=== PATIENT | female | born 1970 | race Caucasian/White ===

== ENCOUNTER 2017-08-26 08:25 | Day surgery (SDC) | payer MEDICAID, SELFPAY ==
--- NOTE | 2017-08-21 14:45 | EKG12_ITS ---
Test Reason : PREOP Blood Pressure : / mmHG Vent. Rate : 077 BPM Atrial Rate : 077 BPM P-R Int : 182 ms QRS Dur : 082 ms QT Int : 390 ms P-R-T Axes : 046 043 045 degrees QTc Int : 441 ms Normal sinus rhythm Normal ECG Confirmed by ASHLEE CHENG, RAY ([id number]), book editor MICHI URIOSTEGUI ([id number] on 08/25/2017 2:55:22 PM Referred By: Abad Loaiza Confirmed By:RAY ROSADO MD
[2017-08-21 15:17] LABS: Anion Gap 8 (5-15); BUN 22 mg/dL (7-18); BUN/Creat Ratio 27.3 RATIO (10-20); Calcium,Total 9.6 mg/dL (8.5-10.1); Chloride 103 mmol/L (98-107); Creatinine, Serum 0.81 mg/dL (0.55-1.02); EST Glomerular Filtration Rate 81 mL/min (>60); Est Glom Filt Rate - Afr Amer 98 mL/min (>60); Glucose 96 mg/dL (70-110); Sodium Level 137 mmol/L (136-145)
[2017-08-26 08:46] VITALS: BP 125/82; PULSE 74; RESP 16; TEMP 36.7; O2SAT 100; BMI 30.4
[2017-08-26] MEDS: Clindamycin 900 MG/50 ML BAG 75 MG IV (10:19)
[2017-08-26] MEDS: Mupirocin Ointment 22gm Tube 1 APPLIC (10:47)
[2017-08-26 12:55] VITALS: BP 125/82; BP 129/80; PULSE 81; RESP 18; TEMP 36.8; O2SAT 93
[2017-08-26 13:00] VITALS: BP 125/82; BP 130/81; PULSE 79; RESP 18; O2SAT 93
[2017-08-26 13:16] VITALS: BP 125/82; BP 126/78; PULSE 77; RESP 18; TEMP 37.1; O2SAT 94
--- NOTE | 2017-08-26 13:36 | PCM.DC ---
You will use the following diet at home:: No restrictions Discharge Activity: May not drive while taking narcotic pain medications. Additional Activity Instructions:: may bathe but needs to keep bridge of nose dry. however, the morning of the follow up appointment, get your nose very wet. muprocin to nasal incisions twice daily. nasal saline 3-4 times/day. Allergies/Adverse Reactions: Allergies oxycodone [From Percocet] Adverse Reaction (Verified 08/18/17 14:21) Vomiting Medications to take at Discharge Lisinopril [Zestril] 10 mg PO QHS 03/22/16 Ibuprofen 200 mg PO PRN PRN 08/18/17 Hydrocodone/Acetaminophen [[place] 5-325 Tablet] 1 ea PO Q6H #20 tab 08/26/17 Sulfamethoxazole/Trimethoprim [Bactrim 400-80 mg Tablet] 1 ea PO BID #14 tab 08/26/17 The following prescriptions were given: Sulfamethoxazole/Trimethoprim [Bactrim 400-80 mg Tablet] 1 ea PO BID #14 tab Hydrocodone/Acetaminophen [[place] 5-325 Tablet] 1 ea PO Q6H #20 tab Primary Care Physician: Cirilo Dillon [Primary Care Provider] - Please Follow Up With: Abad Loaiza MD When: 1 week
[2017-08-26] MEDS: HYDROcodone Bitartrate/Apap 5/325 Tablet PO (14:37)
[2017-08-26 15:26] VITALS: BP 125/82
--- NOTE | 2017-08-26 16:47 | PCM.OPRPT ---
Problem List (1) Nasal congestion Status: Chronic Report of Operation Date of Procedure: 08/26/17 Pre-Operative Diagnosis: 1. nasal congestion. 2. nasal septal deviation. 3. inferior turbinate hypertrophy, right and left. 4. internal nasal valve collapse, right and left Post-Operative Diagnosis: 1. nasal congestion. 2. nasal septal deviation. 3. inferior turbinate hypertrophy, right and left. 4. internal nasal valve collapse, right and left Surgery/Procedure Performed:: 1. open septorhinoplasty. 2. submucous resection inferior turbinates. 3. correction internal nasal valve stenosis, right and left Type of Anesthesia:: General Description of Procedure: on the day of the procedure, after appropriate informed consent was obtained, the patient was brought to the operating room and placed in supine position on the operating room table. he was placed under general endotracheal anesthesia by the anesthesiologist. tegaderm was placed over the eyes. the bilateral nasal cavities were decongested with oxymetazoline soaked pledgets. an inverted v columellar incision was made with a asa'carsarmiut blade. this traversed into marginal incisions on the right and left with three point retraction and iris scizzors. the lower lateral cartilages were skeletonized. the scroll region was found and the left and right upper lateral cartilages were skeletonized with iris scizzors. a large amount of scar tissue was encountered as this was a revision rhinoplasty. the medial crura were lateralized with zohra brown forceps and the anterior septal angle was found. sub mucoperichondrial planes were developed on the right then left using a tracy elevator. the previous L-strut created was weak, bowed and deviated to the left. this was incised in order to complete an anterior septal reconstruction. however, after incision, the overlying pieces of cartilage came together quite nicely. a PDS plate was fashioned to bridge the gap and a 1 x 2 cm portion was sutured including the overlying cartilage. the submucoperichondrial plane was then closed with numerous quilting sutures, some incorporating the reconstruction and PDS plate. the head of the right and left inferior turbinates were injected with lidocaine/epinephrine. an incision was made in the head of the right inferior turbinate. this was dissected submucosally with a tracy elevator, reduced using suction electrocautery, and outfractured using a boies elevator. an incision was made in the head of the left inferior turbinate. this was dissected submucosally with a tracy elevator, reduced using suction electrocautery, and outfractured using a boies elevator. the lateral nasal sidewalls on the right and left were injected with lidocaine/epinephrine. the spirox, lateral trocar was inserted into the right vestibular skin and was advanced over the lower lateral cartilage and upper lateral cartilage to a predetermined point over the right nasal bone. using the device in usual fashion, the implant was advanced and the trocar was retracted. the spirox, lateral trocar was inserted into the left vestibular skin and was advanced over the lower lateral cartilage and upper lateral cartilage to a predetermined point over the left nasal bone. using the device in usual fashion, the implant was advanced and the trocar was retracted. taveras splints were sutured into place and a dorsal nasal splint was placed. the patient was awoken from anesthesia by the anesthesiologist and transferred to the PACU in stable condition. Grafts/Implants Used: latera - Admit VTE Documentation VTE Present on Admission: No VTE Mechan Device Prophylaxis: SCD's Reason prophylaxis not ordered:: Treatment Not Indicated
--- NOTE | 2017-08-26 17:03 | OP.PCM_ITS ---
Problem List (1) Nasal congestion Status: Chronic Report of Operation Date of Procedure: 08/26/17 Pre-Operative Diagnosis: 1. nasal congestion. 2. nasal septal deviation. 3. inferior turbinate hypertrophy, right and left. 4. internal nasal valve collapse, right and left Post-Operative Diagnosis: 1. nasal congestion. 2. nasal septal deviation. 3. inferior turbinate hypertrophy, right and left. 4. internal nasal valve collapse, right and left Surgery/Procedure Performed:: 1. open septorhinoplasty. 2. submucous resection inferior turbinates. 3. correction internal nasal valve stenosis, right and left Type of Anesthesia:: General Description of Procedure: on the day of the procedure, after appropriate informed consent was obtained, the patient was brought to the operating room and placed in supine position on the operating room table. he was placed under general endotracheal anesthesia by the anesthesiologist. tegaderm was placed over the eyes. the bilateral nasal cavities were decongested with oxymetazoline soaked pledgets. an inverted v columellar incision was made with a [facility] ira blade. this traversed into marginal incisions on the right and left with three point retraction and iris scizzors. the lower lateral cartilages were skeletonized. the scroll region was found and the left and right upper lateral cartilages were skeletonized with iris scizzors. a large amount of scar tissue was encountered as this was a revision rhinoplasty. the medial crura were lateralized with zohra brown forceps and the anterior septal angle was found. sub mucoperichondrial planes were developed on the right then left using a tracy elevator. the previous L-strut created was weak, bowed and deviated to the left. this was incised in order to complete an anterior septal reconstruction. however, after incision, the overlying pieces of cartilage came together quite nicely. a PDS plate was fashioned to bridge the gap and a 1 x 2 cm portion was sutured including the overlying cartilage. the submucoperichondrial plane was then closed with numerous quilting sutures, some incorporating the reconstruction and PDS plate. the head of the right and left inferior turbinates were injected with lidocaine/ epinephrine. an incision was made in the head of the right inferior turbinate. this was dissected submucosally with a tracy elevator, reduced using suction electrocautery, and outfractured using a boies elevator. an incision was made in the head of the left inferior turbinate. this was dissected submucosally with a tracy elevator, reduced using suction electrocautery, and outfractured using a boies elevator. the lateral nasal sidewalls on the right and left were injected with lidocaine/ epinephrine. the spirox, lateral trocar was inserted into the right vestibular skin and was advanced over the lower lateral cartilage and upper lateral cartilage to a predetermined point over the right nasal bone. using the device in usual fashion, the implant was advanced and the trocar was retracted. the spirox, lateral trocar was inserted into the left vestibular skin and was advanced over the lower lateral cartilage and upper lateral cartilage to a predetermined point over the left nasal bone. using the device in usual fashion , the implant was advanced and the trocar was retracted. taveras splints were sutured into place and a dorsal nasal splint was placed. the patient was awoken from anesthesia by the anesthesiologist and transferred to the PACU in stable condition. Grafts/Implants Used: latera - Admit VTE Documentation VTE Present on Admission: No VTE Mechan Device Prophylaxis: SCD's Reason prophylaxis not ordered:: Treatment Not Indicated
== END 2017-08-26 15:15 | disposition home or self-care (01) ==
LOC: SDC 08:25 → AC 08:26
PROVIDERS: Family Provider Family Medicine; PCP Family Medicine; Visit Provider Otolaryngology
PROC: (CPT 30140; principal; 2017-08-26 10:00)
DX: J34.2 Deviated nasal septum (principal); R09.81 Nasal congestion; J34.3 Hypertrophy of nasal turbinates; M95.0 Acquired deformity of nose; I10 Essential (primary) hypertension
CPT/HCPCS: 00160; 30140; 30420; 36415; 80048; 93005; J7120; J2405

== ENCOUNTER 2021-01-10 06:54 | Emergency (ER) | payer MEDICAID, SELFPAY ==
[2020-12-06 08:06] VITALS: BMI 30.4
[2021-01-10 06:54] VITALS: BP 150/135; PULSE 68; RESP 18; TEMP 36.5; O2SAT 97; BMI 33.0
--- NOTE | 2021-01-10 07:01 | CT_ITS ---
STUDY: CT ABDOMEN AND PELVIS WITHOUT CONTRAST REASON FOR EXAM: Female, 50 years old. Pain RADIATION DOSAGE (If Supplied By Facility): CTDIvol = ( 14.76 ) mGy, DLP = ( 814.80 ) mGycm TECHNIQUE: Transaxial images were obtained from the dome of the diaphragm to the symphysis pubis without oral contrast, and without intravenous contrast. Sagittal and coronal images were reconstructed. Individualized dose optimization techniques were used for this CT. COMPARISON: None. FINDINGS: The visualized lung bases are unremarkable. The visualized portions of the heart are within normal limits. There is hepatomegaly with diffuse hepatic enlargement. Normal gallbladder and extrahepatic biliary system. Normal spleen. Normal pancreas. Normal bilateral adrenal glands. Normal right kidney. Mild left hydronephrosis. There is mild distention of the left ureter. There is a suggestion of a punctate stone in the proximal left ureter image #86. There is a stone just inside the bladder at the level of ureterovesicular junction measuring approximately 2 -3 mm. Normal visualized stomach. Normal small intestine. There is moderate stool in the colon. The appendix is visualized and appears normal. Normal abdominal aorta. Normal inferior vena cava. Normal retroperitoneum. There is a 2 to 3 mm stone in the left side of the bladder. Normal visualized uterus. Normal abdominal wall. There are diffuse degenerative changes of the visualized lumbar spine. There is a visualized limbus vertebra at L5. There is a broad disc protrusion L5-S1 with moderate neural foramina narrowing minimal central stenosis. There is a broad disc CT/Abdomen/Pelvis without Cont IMPRESSION: Mild hydronephrosis. 2 to 3 mm stone Just inside the bladder at the ureterovesicular junction, and punctate stone proximal left ureter. Constipation. Mild hepatic steatosis. Degenerative changes of thoracolumbar spine. Electronically Signed: Rima Espinal MD at 8:07 EDT Tel , Service support ,
--- NOTE | 2021-01-10 07:02 | ED.VIS.GI ---
HPI HPI - GI History of Present Illness Chief Complaint: Flank Pain Detail of Chief Complaint: Sided flank pain that started 1 hour ago Informant: patient Abdominal Pain/Flank Pain Current Severity: 10/10 Worsened by: Nothing Nausea/Vomiting/Emesis GI Symptom: Positive for Nausea and Vomiting Narrative Narrative: Patient presents with sudden onset of left-sided lower abdomen pain that started an hour ago. She had one episode of nausea and vomiting. Patient is never had discomfort like this before. She rates the pain a 10 out of 10. She denies fever or recent illness. She denies diarrhea. She denies blood in her stool or black tarry stool. No history of kidney stones. She denies dysuria, urgency, or frequency. Prior similar symptoms: No PFSH [facility] Medical History (Updated 01/10/21 @ 08:[address] Rasta Gallardo, ) Hypertension Home Medications hydrochlorothiazide 12.5 mg PO DAILY 01/10/21 [History Last Taken Unknown] hydrocodone-acetaminophen 1 tab PO Q4H PRN PRN 2 Days #10 tablet 01/10/21 [Rx Last Taken Unknown] losartan 50 mg PO DAILY 01/10/21 [History Last Taken Unknown] naproxen 500 mg PO BID #14 tab 01/10/21 [Rx Last Taken Unknown] ondansetron 4 mg PO Q8H PRN PRN #10 tab 01/10/21 [Rx Last Taken Unknown] Allergy/AdvReac Type Severity Reaction Status Date / Time oxycodone [From Percocet] AdvReac Vomiting Verified 01/10/21 07:00 Social History Smoking Status: Never smoker ROS ROS ED Constitutional Constitutional ED: Reports systems reviewed and no addt'l complaints, except as documented; Denies body ache(s), change in weight or chills Eyes Eyes: Denies acute decrease in peripheral vision, change in vision, double vision or loss of vision ENT ENT ED: Reports none; Denies ear pain, lip swelling, loss taste/smell, neck pain, otalgia or sore throat Cardiovascular Cardiovascular: Reports none; Denies abdominal pain, chest pain with activity, leg edema, lightheadedness, palpitations, rapid heart rate or syncope Respiratory/Chest Respiratory/Chest: Reports none; Denies change in mental status, dry cough, dyspnea, hemoptysis, shortness of breath at rest or shortness of breath with exertion Gastrointestinal Gastrointestinal: Reports none, abdominal pain, nausea and vomiting; Denies change in stool character, diarrhea, hematemesis, hematochezia, melena or rectal bleeding Genitourinary Genitourinary ED: Reports none; Denies abdominal discomfort, anuria, dysuria, genital pain or polyuria Musculoskeletal Musculoskeletal: Reports none; Denies arthralgias, back pain, difficulty walking, extremity pain, muscle weakness or myalgias Integumentary Reports none; Denies abscess or rash Neurologic Neurologic: Reports none; Denies abnormal gait, confusion, focal weakness, frequent falls, headache(s), loss of vision, numbness, paresthesias, radicular pain, vertigo or weakness Psychiatric Psychiatric: Reports systems reviewed and no addt'l complaints, except as documented and none; Denies behavioral changes, confusion, difficulty concentrating, hallucinations, suicidal ideation, tactile hallucinations or visual hallucinations Endocrine Endocrinology: Denies none, cold intolerance, excessive sweating, fatigue or heat intolerance Hematologic/Lymphatic Hematologic/Lymphatic: Reports none; Denies anemia, easy bleeding or easy bruising Allergic/Immunologic Allergic/Immunologic ED: Denies as per HPI, none, lip swelling, mouth swelling, throat swelling, tongue swelling or hives EXAM Physical Exam Const Vital Signs: 01/10/21 06:54 Temperature 97.7 F L Temperature Source Oral Pulse Rate 68 Respiratory Rate 18 Blood Pressure 150/135 H Blood Pressure Mean 140 Pulse Ox 97 Oxygen Delivery Method Room Air Positive well nourished and well developed General Appearance ED: well developed and NAD HEENT Reports TM's clear and moist mucous membranes normocephalic and atraumatic; Negative for trauma or tenderness Tympanic Membrane ED: Yes TM's clear Eyes PERRL and EOMs intact bilaterally General Eye ED: Negative for pale conjunctiva or scleral icterus Neck no lymphadenopathy, supple and no JVD General: Negative for tenderness Chest Wall inspection of chest normal and palpation of chest normal Chest: Negative for tenderness Resp normal respiratory effort and clear to auscultation bilaterally Effort and Inspection: Negative for respiratory distress or pain with movement Auscultation: Negative for rhonchi, wheezes or diminished lung sounds Cardio regular rate, regular rhythm, S1 normal heart sound, S2 normal heart sound and no murmurs Peripheral Pulses: pulses 2+ throughout GI normal to inspection, nondistended, normoactive bowel sounds, soft to palpation, non-tender, non-distended and no masses Palpation: tender LLQ Back/Spine no thoracic nor lumbar tenderness General Back: CVA tenderness left Extremity normal to inspection General Extremety ED: Negative for edema General Extremity: Negative for edema Neuro oriented x3, CN's II-XII intact bilaterally, no sensory deficits noted and gait normal Sensorium / Orientation: awake, alert, oriented to person, oriented to place and oriented to time Motor Exam: strength 5/5 throughout and strength abnormal Psych mental status grossly normal Skin no rashes or lesions noted and no wounds MDM MDM MDM Narrative Medical decision making narrative: Patient was medicated with Toradol, Dilaudid, and Zofran. She initially had good pain relief but then the pain started to come back and was given another milligram of Dilaudid. At this time she is feeling significantly improved and currently rates her pain about a 4 out of 10. I discussed admitting her for pain control versus outpatient therapy as I feel like the stones that she has in the left ureter are small and likely to pass without any intervention. Patient does not want to be admitted and would prefer to go home. She will return if worsening pain, fever, vomiting, or condition should worsen anyway. Patient will be given referral to urology. Patient given a prescription for Benld and Zofran. Lab Data Attestation: I reviewed the patient's lab results. Labs: Laboratory Results - last 24 hr 01/10/21 01/10/21 01/10/21 07:07 07:07 07:50 WBC 10.1 RBC 4.96 Hgb 14.7 Hct 44.7 MCV 90.1 MCH 29.6 MCHC 32.9 RDW Std Deviation 45.4 H RDW Coeff of Brannon 13.7 Plt Count 377 MPV 8.7 Immature Gran % (Auto) 0.400 Neut % (Auto) 48.5 Lymph % (Auto) 38.2 [place] % (Auto) 7.2 Eos % (Auto) 5.0 Baso % (Auto) 0.7 Absolute Neuts (auto) 4.9 Absolute Lymphs (auto) 3.85 Nucleated RBC % 0 Sodium 140 Potassium 3.7 Chloride 108 H Carbon Dioxide 22.0 Anion Gap 10 BUN 20 H Creatinine 0.89 Estim Creat Clear Calc 72.72 Est GFR (MDRD) Af Amer 86 Est GFR (MDRD) Non-Af 71 BUN/Creatinine Ratio 22.4 H Glucose 160 H Calcium 9.7 Urine Color Yellow Urine Clarity Sl. Cloudy Urine pH 5.0 Ur Specific [place] 1.030 Urine Protein 30 H Urine Glucose (UA) Normal Urine Ketones 5 H Urine Occult Blood 250 H Urine Nitrite Negative Urine Bilirubin Negative Urine Urobilinogen Normal Ur Leukocyte Esterase 25 H Urine RBC 25-50 SEEN Urine WBC 5-10 SEEN Ur Squamous Epith Cells 10-25 SEEN Urine Bacteria 0 SEEN Urine Mucus 0 SEEN Radiography Diagnostic Testing: Radiology Impression Abdomen/Pelvis CT 01/10/21 07:01 IMPRESSION: Mild hydronephrosis. 2 to 3 mm stone Just inside the bladder at the ureterovesicular junction, and punctate stone proximal left ureter. Constipation. Mild hepatic steatosis. Degenerative changes of thoracolumbar spine. Electronically Signed: Rima Espinal MD at 8:07 EDT Tel , Service support , Discharge Plan Triage Chief Complaint: Flank Pain ED Provider: Rasta Gallardo Dx/Rx/DC Orders Clinical Impression: Ureterolithiasis Instructions: ED Kidney Stone w/ Colic Prescriptions: New hydrocodone-acetaminophen [hydrocodone-acetaminophen] 1 TABLET tablet 1 tab PO Q4H PRN PRN (Reason: Pain) 2 Days Qty: 10 RF: 0 ondansetron [ondansetron] 4 MG tablet 4 mg PO Q8H PRN PRN (Reason: Nausea) Qty: 10 RF: 0 naproxen 500 MG tablet 500 mg PO BID Qty: 14 RF: 0 No Action losartan 50 mg tablet 50 mg PO DAILY RF: 0 hydrochlorothiazide 12.5 mg tablet 12.5 mg PO DAILY RF: 0 Primary Care Provider: Cirilo Dillon Referrals: Charles Woodson MD [STAFF PHYSICIAN] - 3-5 Days Cirilo Dillon MD [Primary Care Provider] -
[2021-01-10] MEDS: Ketorolac 30 MG/ML Syringe IV (07:08)
[2021-01-10] MEDS: Ondansetron 4 MG/2 ML Vial IV (07:08)
[2021-01-10] MEDS: HYDROmorphone 1 MG/ML Syringe IV ×2 (07:08→08:04)
[2021-01-10] MEDS: 0.9% Normal Saline 1,000 ML 125 ML IV (07:10)
[2021-01-10 07:12] LABS: Absolute Lymphocyte Count 3.85 X10^3/uL (0.83-4.51); Absolute Neutrophil Count 4.9 X10^3/uL (2.0-7.7); Basophil# 0.07 X10^3/uL; Basophil% 0.7 % (0-1); Hematocrit 44.7 % (37-47); Hemoglobin 14.7 g/dL (12.0-15.0); Lymphocyte # 3.85 X10^3/ul (0.83-4.51); Lymphocyte % 38.2 % (19-41); Mean Corp Hgb Conc 32.9 g/dL (32-36); Mean Corpuscular Hgb 29.6 pg (27.0-32.0); Mean Corpuscular Volume 90.1 fL (81-99); Mean Platelet Vol. 8.7 fl (6.2-12.0); Monocyte# 0.73 X10^3/uL; Monocyte% 7.2 % (0-10); NRBC Flagged by Analyzer 0 % (0-5); Neutrophil # 4.89 X10^3/uL (2.7-7.7); Neutrophil % 48.5 % (47-70); Platelet Count 377 K/mm3 (150-450); RBC Distribution Width CV 13.7 % (11.6-14.6); RBC Distribution Width SD 45.4 fl (35.1-43.9); Red Blood Count 4.96 M/mm3 (4.2-5.4); White Blood Count 10.1 K/mm3 (4.4-11.0)
[2021-01-10 07:26] LABS: Anion Gap 10 (5-15); BUN 20 mg/dL (7-18); BUN/Creat Ratio 22.4 RATIO (10-20); Calcium,Total 9.7 mg/dL (8.5-10.1); Chloride 108 mmol/L (98-107); Creatinine, Serum 0.89 mg/dL (0.55-1.02); EST Glomerular Filtration Rate 71 mL/min (>60); Est Glom Filt Rate - Afr Amer 86 mL/min (>60); Estimated Creatinine Clearance 72.72 ml/min; Glucose 160 mg/dL (74-106); Potassium 3.7 mmol/L (3.5-5.1); Sodium Level 140 mmol/L (136-145)
[2021-01-10 07:57] LABS: Bacteria 0 SEEN /hpf (None Seen); Color, Urine Yellow (Yellow); Glucose, Dipstick Normal (Normal); Ketone-Dipstick 5 mg/dl (Negative); Leukocyte Esterase-Dipstick 25 /ul (Negative); Mucous, Urine 0 SEEN /hpf (<or=2+); Nitrite-Dipstick Negative (Negative); Occult Blood-Urine 250 /ul (Negative); Protein-Dipstick 30 mg/dl (Negative); Urine Bilirubin Dipstick Negative (Negative); Urine Clarity Sl. Cloudy (Clear); Urine Urobilinogen Normal (Normal)
[2021-01-10 08:16] LABS: Red Blood Cells-Urine 25-50 SEEN /hpf (0-5); Squamous Epithelial Cells - UA 10-25 SEEN /hpf (5-10)
[2021-01-10 08:17] LABS: White Blood Cells 5-10 SEEN /hpf (0-5)
[2021-01-10 08:50] VITALS: BP 118/63; PULSE 72; RESP 15; O2SAT 98
== END 2021-01-10 08:52 | disposition home or self-care (01) ==
LOC: ED 08:09
PROVIDERS: Emergency Provider Emergency Medicine; PCP Family Medicine
DX: N13.2 Hydronephrosis with renal and ureteral calculous obstruction (principal); I10 Essential (primary) hypertension; Z79.899 Other long term (current) drug therapy
CPT/HCPCS: 74176; 80048; 81001; 85025; 96361; 96374; 96375; 99283; J7030; A4216; J2405

== ENCOUNTER 2021-07-10 09:00 | Outpatient (RCR) | payer MEDICAID, SELFPAY ==
--- NOTE | 2021-05-21 07:51 | HP.PTEVAL ---
Patient's Visit Information JERAMY RICKETTS is a 50 year old F referred to Physical Therapy by Dr. Elpidio Murphy DO with a diagnosis of B greater trochanteric bursitis.. Date of Evaluation: 05/21/21 Physical Therapist: Cedrick Cerda, DPT, OCS, CSCS - Visit Plan Frequency: 2-3x /Week Duration: 4-6 Weeks Plan: 2-3x/week for 3-4 weeks for aquatic therapy for. 1. ITB, piriformis and HS stretching. 2. hip Stabs. 3. LE and core strength. 4. Progress all to I pool program for community pool as exit strategy. - Subjective I have serious hip problems including being born with hip dysplasia. H/O L knee meniscus problem. these problems made her unable to work. Used to work at [email or web address] on feet all day and has just quit this job as she cannot do it anymore. Saw Dr. Bravo for injections for both hips in December. Got shot in knee and both hips last week also. That has helped a little bit. Not on feet as much anymore. Hip pain laterally and L>R. Gets 6/10 with being on feet alot or standing too much. Don't hav emany steps at home. Mostly comfortable at rest. Sleep is not great due to hip pain and L knee pain. No other treatments. Does housework at home and enjoys being outside adn can do this slowly in her own time. No regular exercises. used to walk 4 miles per day but hips limit this. - Pain B hip pain Pain Intensity (Out of 10): 0 Pain Intensity Range: 0, 6 - Objective Walks normal and I albeit slow. Trasnfers I. Steps with rail pulling reciprocally. LB aROM WFL and without pain. ITB and piriformis are tight B. Max tender over L greater trochanter area and mod tender on R side. L goes into piriformis and down ITRB. AROM at hips adn knees and ankels WFL otherwise with some tenderness end L knee flexion. Also pain end ranges of rotation B hips and adduction. reflexes 2/3 patella and achilles. Sensation LE WNL to gross light touch. Strength is 3 in hip abd and ext and rotations with some discomfort L >R. flexion 4-, knee flex/ext 4- and ankles 4/5. Slight + KOBE and less so on FADDIR B. - hip scour B. - Balance/Special Test Scores Functional Gait Assessment Score: 30 % Disability: 0 Lower Extremity Functional Score: 44 - Goals Goal 1:: Full Hip ROM without pain. Goal Time Frame: 4-6 Weeks Goal 2:: sleep without waking at night due to discomfort Goal Time Frame: 4-6 Weeks Goal 3:: LEFS score of 60 to improve function Goal Time Frame: 4-6 Weeks Goal 4:: Pain 1/10 at worst and tolerable/manageable Goal Time Frame: 4-6 Weeks - Rehabilitation Potential Physical Therapy Diagnosis: B greter trochanteric bursitis Rehabilitation Potential: Fair - Anticipated Interventions Patient/Client Instruction: Educate patient on: Condition, Plan of Care For the Purpose of:: To decrease pain, To improve muscle performance and motor function, To increase tolerance to activity/condition/position, To improve ability of physical actions for home/community/work/leisure Therapeutic Exercise to Include: Strength training, Flexibilty training, In an aquatic setting, Passive ROM, Active ROM For the Purpose of:: To decrease pain, To improve nutrient delivery to tissue, To improve muscle performance and motor function, To increase tolerance to activity/condition/position, To improve ability of physical actions for home/community/work/leisure Thank you for the opportunity to evaluate your patient. For Medicare and Medicare HMO plans, please review the plan of care and approve it. It will need to be FAXED BACK to us at [phone] for Medicare purposes. For Medicare only, by signing this I certify the plan of care. Please let me know if there are questions or concerns regarding this plan of care. Physician Signature: Date:
--- NOTE | 2021-07-10 10:26 | HP.PTDCSUM_ITS ---
It has been my pleasure to treat JERAMY RICKETTS referred by Dr. Elpidio Murphy DO, with the diagnosis of B greater trochanteric bursitis. for a total of 13 visit(s). Discharge Date: 07/10/21 Please see the following information for a summary of their discharge status. Subjective: Just came from the pool. It is helping. I can feel the difference in less tightness in my muscles. Pain is still present to 5/10 today and worse after cleaning to 8/10 after cleaning. that was LB and lateral hip pain. Sleep is interrupted at times. Taking 4-8 advil a day. Activities are pretty normal just limited to a little bit at a time. had MRI last week and no results yet, awaiting call from doctor.,. doctor thinking about possible surgery according to patient. Still in pain that is not acceptable to her. Will continue as member in [employer]. B hip pain Pain Intensity (Out of 10): 5 LB Pain Intensity (Out of 10): 5 % Improvement: 25 Objective/Function: Good ROM in hips but still some pain and tightness end range of hip flexion posteriorly in hips. Walks well today and steps reciprocally with increased pain L hip descending. Goal 1:: Full Hip ROM without pain. Goal Progress: flexion still hurts Goal 2:: sleep without waking at night due to discomfort Goal Progress: Not Progressing Goal 3:: LEFS score of 60 to improve function Goal Progress: Not Progressing Goal 4:: Pain 1/10 at worst and tolerable/manageable Goal Progress: Not Progressing Plan: d/c to I pool program. Discharge Comments: Will continue as member I in our pool. If there are questions or concerns regarding this patient's physical therapy, please feel free to call me at [phone]. Thank you for the referral of this patient. Sincerely, Cedrick Cerda, DPT, OCS, CSCS Balance/Gait/Functional tests - Balance/Special Test Scores Functional Gait Assessment Score: 30 % Disability: 0 Lower Extremity Functional Score: 37
== END 2021-07-10 12:22 | disposition home or self-care (01) ==
LOC: PT 09:00
PROVIDERS: PCP Family Medicine; Referring Provider Orthopaedic Surgery; Visit Provider Orthopaedic Surgery
DX: M70.62 Trochanteric bursitis, left hip (principal); M70.61 Trochanteric bursitis, right hip
CPT/HCPCS: 97113; 97161; 97164

== ENCOUNTER → 2021-08-02 14:00 | Outpatient (CLI) | payer MEDICAID, SELFPAY ==
--- NOTE | 2021-08-02 14:03 | VDLE_ITS ---
Reason For Study: Swelling Procedure LEFT This is a venous duplex using B-mode, color GSV is normal. flow and spectral Doppler. CFV is compressible, spontaneous, phasic, Exam performed in department. competent, and demonstrates normal A preliminary report was called and/or faxed augmentation. to [facility]. FV is compressible, spontaneous, phasic, competent and demonstrates normal augmentation. POP V is compressible, spontaneous, phasic, competent and demonstrates normal augmentation. T/P Trunk is compressible. PTV is compressible. LT PerV is compressible. VL/Venous Duplex US, Unilateral Interpretation Summary Deep veins of the left lower extremity are patent and compressible segmentally. There is no evidence of left lower extremity deep vein thrombosis. Valvular competence appears intac t within the proximal deep venous system on the left . The left great saphenous vein appears patent a nd compressible segmentally. Ordering Physician: Chu Ellis Referring Physician: MD Cirilo Evans Performed By: Akanksha Stein RVRo
== END ==
PROVIDERS: PCP Family Medicine; Referring Provider Physician Assistant; Visit Provider Physician Assistant
DX: R22.42 Localized swelling, mass and lump, left lower limb (principal)
CPT/HCPCS: 93971

== ENCOUNTER 2021-08-31 11:39 | Outpatient (CLI) | payer MEDICAID, SELFPAY ==
[2021-08-31 12:26] LABS: Absolute Lymphocyte Count 2.43 X10^3/uL (0.83-4.51); Absolute Neutrophil Count 6.9 X10^3/uL (2.0-7.7); Basophil# 0.04 X10^3/uL; Basophil% 0.4 % (0-1); Eosinophil# 0.16 X10^3/uL; Eosinophils% 1.6 % (0-5); Hematocrit 45.3 % (37-47); Hemoglobin 15.5 g/dL (12.0-15.0); Lymphocyte # 2.43 X10^3/ul (0.83-4.51); Lymphocyte % 23.6 % (19-41); Mean Corp Hgb Conc 34.2 g/dL (32-36); Mean Corpuscular Hgb 30.6 pg (27.0-32.0); Mean Corpuscular Volume 89.3 fL (81-99); Mean Platelet Vol. 8.5 fl (6.2-12.0); Monocyte# 0.72 X10^3/uL; NRBC Flagged by Analyzer 0 % (0-5); Neutrophil # 6.91 X10^3/uL (2.7-7.7); Platelet Count 426 K/mm3 (150-450); RBC Distribution Width CV 13.6 % (11.6-14.6); RBC Distribution Width SD 44.3 fl (35.1-43.9); Red Blood Count 5.07 M/mm3 (4.2-5.4); White Blood Count 10.3 K/mm3 (4.4-11.0)
[2021-08-31 12:42] LABS: Vitamin D,25 Hydroxy 39.8 ng/mL
[2021-08-31 12:56] LABS: AST(SGOT) 23 U/L (15-37); Alanine Aminotransfer ALT/SGPT 57 U/L (13-56); Albumin, Serum 3.9 g/dL (3.2-5.0); Alkaline Phosphatase 99 U/L (45-117); Anion Gap 7 (5-15); BUN 15 mg/dL (7-18); BUN/Creat Ratio 18.5 RATIO (10-20); Calcium,Total 10.2 mg/dL (8.5-10.1); Chloride 107 mmol/L (98-107); Creatinine, Serum 0.81 mg/dL (0.55-1.02); EST Glomerular Filtration Rate 79 mL/min (>60); Est Glom Filt Rate - Afr Amer 95 mL/min (>60); Globulin 3.9 g/dL (2.2-4.2); Glucose 98 mg/dL (74-106); Protein, Total 7.8 g/dL (6.4-8.2); Sodium Level 137 mmol/L (136-145); Thyroid Stim Hormone (TSH) 3.85 uIU/mL (0.358-3.74)
== END 2021-08-31 23:59 | disposition short-term general hospital (02) ==
LOC: LAB.FUTURE 11:40 → POLAB3 09-04 07:58
PROVIDERS: PCP Family Medicine; Visit Provider Family Medicine Geriatric Medicine
DX: R53.83 Other fatigue (principal); E55.9 Vitamin D deficiency, unspecified
CPT/HCPCS: 36415; 80053; 82306; 84443; 85025

== ENCOUNTER 2021-09-27 13:08 | Outpatient (CLI) | payer MEDICAID, SELFPAY ==
--- NOTE | 2021-09-27 13:12 | BI_ITS ---
MAMMOGRAPHY - BILATERAL SCREENING REASON FOR EXAM: Female, 50 years old. Routine annual screening examination. PERTINENT HISTORY: Non-contributory. TECHNIQUE: Digital bilateral breast bc (3D mammographic acquisition) in the CC and MLO projections. 2-D mediolateral oblique (MLO) and craniocaudad (CC) views of both breasts were obtained. CAD: Full Field Digital Mammography with Computer Added Detection was performed. COMPARISON: Comparison is made with prior examination dated 10/08/2018. FINDINGS: Breast Composition: There are scattered areas of fibroglandular density. There are no dominant masses or suspicious calcifications. Stable asymmetry of breast tissue normal breast tissue is seen in the retroareolar region of the left breast as compared to the right side. Questionable 1 cm retroareolar nodule in the left breast. There is also evidence of a questionable 3.5 mm nodule in the superior lateral aspect of the left breast. Correlation with ultrasound is recommended. No other significant abnormalities are identified. BI/SCRN MAMM (CAD)W/BC BILAT IMPRESSION: Asymmetry of breast tissue or more breast tissue is seen in the retroareolar region of the left breast as compared to the right side. Correlation with ultrasound is recommended. ASSESSMENT CATEGORY: BIRADS Category 0: Incomplete. Need additional imaging evaluation. A letter regarding these results will be sent to the patient by the facility within 30 days. Approximately 10% of breast cancers are not detected by mammography. A normal mammogram should not delay biopsy of a clinically suspicious abnormality. [id number] Electronically Signed: Grabiel Spence MD at 14:38 EST ,
== END 2021-09-27 23:59 | disposition home or self-care (01) ==
LOC: OPBI 13:09
PROVIDERS: PCP Family Medicine; Visit Provider Family Medicine Geriatric Medicine
DX: Z12.31 Encounter for screening mammogram for malignant neoplasm of breast (principal)
CPT/HCPCS: 77063; 77067

== ENCOUNTER 2021-10-02 10:03 | Outpatient (CLI) | payer MEDICAID, SELFPAY ==
--- NOTE | 2021-10-02 10:06 | US_ITS ---
STUDY: ULTRASOUND BREAST - LEFT REASON FOR EXAM: Female, 50 years old. Abnormal screening mammogram. TECHNIQUE: Axial and longitudinal images of the LEFT breast were performed with a high resolution ultrasound transducer. # OF IMAGES: 56 COMPARISON: Comparison is made with prior mammogram dated 09/27/2021. FINDINGS: LEFT Breast: There is a 6 mm x 9 mm x 7 mm hypoechoic solid nodule at the 3 o''clock position of the breast in the retroareolar level. Biopsy is recommended. There is also evidence of a 5 mm x 4 mm x 2 mm cyst at the 2 o''clock position in the breast at 3 cm from the nipple. US/Breast Limited Unilateral IMPRESSION: 6 mm x 9 mm x 7 mm hypoechoic solid nodule at the 3 o''clock position of the breast in the retroareolar level. Biopsy recommended. ASSESSMENT CATEGORY: BIRADS Category 4: Suspicious - Biopsy Should Be Considered. A letter regarding these results will be sent to the patient by the facility within 30 days. Electronically Signed: Grabiel Spence MD at 11:00 EST ,
[2021-10-02 17:33] LABS: Thyroid Stim Hormone (TSH) 2.87 uIU/mL (0.358-3.74)
== END 2021-10-02 23:59 | disposition home or self-care (01) ==
LOC: OPUS 10:04 → POLAB3 15:12
PROVIDERS: PCP Family Medicine Geriatric Medicine; Visit Provider Family Medicine Geriatric Medicine
DX: E03.9 Hypothyroidism, unspecified (principal); R92.8 Other abnormal and inconclusive findings on diagnostic imaging of breast
CPT/HCPCS: 36415; 76642; 84443

== ENCOUNTER 2021-10-11 07:25 | Outpatient (CLI) | payer MEDICAID, SELFPAY ==
--- NOTE | 2021-10-11 07:27 | US_ITS ---
ULTRASOUND GUIDED CORE BIOPSY REASON FOR EXAM: Female, 50 years old. Left breast MASS PERTINENT HISTORY: Left breast mass. COMPARISON: Comparison is made with prior sonogram dated 10/02/2021. TECHNIQUE: (All elements of maximal sterile barrier technique followed, including US elements as applicable) Under direct sonographic guidance, the surgeon performed core biopsies of the hypoechoic solid nodule at the 3 o''clock position of the breast. Nodule measures 0.8 cm x 1.1 cm x 0.5 cm. US/US Breast Biopsy 1st Lesion IMPRESSION: Ultrasound guided core biopsy of a mass in the LEFT breast at successful ultrasound-guided biopsy of the nodular density at the 3 o''clock radiant of the breast in the retroareolar region without complication. Electronically Signed: Grabiel Spence MD at 9:34 EST ,
--- NOTE | 2021-10-11 08:30 | BRBX_PTH ---
PATIENT: JERAMY RICKETTS LOC: OPUS U#:[id number] AGE/SX: 50/F ROOM: RE10/11/[address]: Dr. Bridget Baldwin MD : 1970 BED: DIS: 10/11/2021 SPEC #: [id number] RECD: 10/11/21 08:53 STATUS: SOLEDAD REHua #: [id number] PRATIK: 10/11/21 08:[address]: Bridget Baldwin DEPT: SURGICAL PATHOLOGY RECD BY: Valeria Barnett ENTERED: 10/11/21 10:07 SP TYPE: BREAST BX OTHR DR: Dr. Yaakov Cole MD Tissues: Left breast, NOS Procedures: Surgery Specimen Level IV HEADER OPERATION: Left breast biopsy PRE-OP DIAGNOSIS: Left breast mass TISSUE SUBMITTED: Left breast mass, 3 o?clock, retroareolar ISCHEMIC TIME: 1 minute FIXATION TIME: 11 hours MICROSCOPIC DIAGNOSIS Left breast mass, 3 o?clock, retroareolar, core biopsy: Consistent with ductal dilatation. Negative for atypia or malignancy. See comment. LORI:iraj 10/12/2021 COMMENT Correlation with clinical, radiologic findings and appropriate follow up are necessary. MICROSCOPIC DESCRIPTION Slides are reviewed. GROSS DESCRIPTION Received in fixative is one container labeled with the patient's name and designated left breast. The specimen consists of multiple elongated fragments of rivera-yellow fibroadipose tissue that in aggregate measure 2.5 x 1.5 x 0.1 cm. The entire specimen is submitted in one cassette. / LORI:iraj 10/11/2021 TC:5 CPT: 05704
--- NOTE | 2021-10-11 08:47 | PCM.OPRPT ---
Report of Operation Date of Procedure: 10/11/21 Pre-Operative Diagnosis: Left breast mass Post-Operative Diagnosis: Same Surgery/Procedure Performed:: Ultrasound guided left breast core biopsy Surgeon: Bridget Baldwin Type of Anesthesia: Local Specimen's removed: Left breast mass 3:00 retroareolar Estimated Blood Loss (mL): Minimal Description of Procedure: Procedure: ultrasound-guided core biopsy Indications: 50 year-old female with hypoechoic nodule at 3:00 in the left breast retroareolar. Risk benefits were discussed the patient and she elected to proceed with ultrasound guided core biopsy with clip placement Description of procedure: Patient was brought into the ultrasound room in the left breast was marked. A timeout was completed verifying correct patient, procedure, site, specially, prior to beginning procedure. The left breast was prepped and draped in usual sterile fashion and using local anesthesia was obtained with 1% lidocaine with epi. The lesion was located with the ultrasound. Small incision was made with 11 blade to introduced the mammotome through the skin. Under ultrasound guidance multiple core samples were obtained using then 13-gauge mammotome and sent in formalin for pathology. The mammotome mammostar clip was then deployed into the biopsy cavity under ultrasound guidance and a picture was taken. Upon completion procedure hemostasis was obtained and a Steri-Strip and OpSite were placed. Patient was then taken to the mammography suite for clip verification. The clip was verified. The patient tolerated the procedure well and was discharged from the breast imaging department good condition. complications: none Complications none
== END 2021-10-11 23:59 | disposition home or self-care (01) ==
LOC: OPUS 07:26
PROVIDERS: PCP Family Medicine Geriatric Medicine; Visit Provider Surgery
DX: N63.20 Unspecified lump in the left breast, unspecified quadrant (principal)
CPT/HCPCS: 19083; 88305

== ENCOUNTER → 2021-12-05 | Outpatient (CLI) | payer MEDICAID, SELFPAY ==
[2021-12-05 15:45] LABS: Absolute Lymphocyte Count 2.57 X10^3/uL (0.83-4.51); Absolute Neutrophil Count 5.1 X10^3/uL (2.0-7.7); Basophil# 0.05 X10^3/uL; Basophil% 0.6 % (0-1); Eosinophil# 0.31 X10^3/uL; Eosinophils% 3.6 % (0-5); Hematocrit 43.1 % (37-47); Hemoglobin 14.2 g/dL (12.0-15.0); Lymphocyte # 2.57 X10^3/ul (0.83-4.51); Lymphocyte % 30.2 % (19-41); Mean Corp Hgb Conc 32.9 g/dL (32-36); Mean Corpuscular Hgb 29.3 pg (27.0-32.0); Mean Corpuscular Volume 88.9 fL (81-99); Monocyte# 0.46 X10^3/uL; Monocyte% 5.4 % (0-10); NRBC Flagged by Analyzer 0 % (0-5); Neutrophil # 5.08 X10^3/uL (2.7-7.7); Neutrophil % 59.8 % (47-70); Platelet Count 380 K/mm3 (150-450); RBC Distribution Width SD 42.6 fl (35.1-43.9); Red Blood Count 4.85 M/mm3 (4.2-5.4); White Blood Count 8.5 K/mm3 (4.4-11.0)
[2021-12-05 16:15] LABS: ALB/GLOB Ratio 0.9 RATIO (0.9-2.4); AST(SGOT) 17 U/L (15-37); Alanine Aminotransfer ALT/SGPT 38 U/L (13-56); Albumin, Serum 3.4 g/dL (3.2-5.0); Alkaline Phosphatase 112 U/L (45-117); Anion Gap 5 (5-15); BUN 15 mg/dL (7-18); BUN/Creat Ratio 15.5 RATIO (10-20); Calcium,Total 10.1 mg/dL (8.5-10.1); Chloride 110 mmol/L (98-107); Creatinine, Serum 0.97 mg/dL (0.55-1.02); EST Glomerular Filtration Rate 64 mL/min (>60); Est Glom Filt Rate - Afr Amer 78 mL/min (>60); Globulin 3.6 g/dL (2.2-4.2); Glucose 121 mg/dL (74-106); Potassium 4.2 mmol/L (3.5-5.1); Sodium Level 141 mmol/L (136-145); Thyroid Stim Hormone (TSH) 2.27 uIU/mL (0.358-3.74)
== END | disposition home or self-care (01) ==
LOC: POLAB3 14:34
PROVIDERS: PCP Family Medicine Geriatric Medicine; Visit Provider Family Medicine Geriatric Medicine
DX: I10 Essential (primary) hypertension (principal)
CPT/HCPCS: 36415; 80053; 84443; 85025

== ENCOUNTER → 2022-01-14 | Outpatient (CLI) | payer MEDICAID, SELFPAY ==
--- NOTE | 2022-01-14 13:20 | US_ITS ---
STUDY: ULTRASOUND BREAST - LEFT REASON FOR EXAM: Female, 51 years old. 3 month follow-up of left breast biopsy. TECHNIQUE: Axial and longitudinal images of the LEFT breast were performed with a high resolution ultrasound transducer. # OF IMAGES: 16 COMPARISON: Comparison is made with prior ultrasound dated 10/02/2021. FINDINGS: LEFT Breast: Stable appearance of the 8 mm x 6 mm x 6 mm hypoechoic nodule at the 3 o''clock position of the breast at the retroareolar region. A tissue clip marker seen within it. This is unchanged. US/Breast Limited Unilateral IMPRESSION: Stable examination. ASSESSMENT CATEGORY: BIRADS Category 2: Benign. A letter regarding these results will be sent to the patient by the facility within 30 days. Electronically Signed: Grabiel Spence MD at 14:31 EDT ,
== END | disposition home or self-care (01) ==
LOC: OPUS 13:19
PROVIDERS: PCP Family Medicine Geriatric Medicine; Visit Provider Surgery
DX: N63.21 Unspecified lump in the left breast, upper outer quadrant (principal)
CPT/HCPCS: 76642

== ENCOUNTER 2022-01-29 09:03 | Outpatient (RCR) | payer MEDICAID, SELFPAY | END 2022-01-29 12:06 | disposition home or self-care (01) | LOC: PT 09:03 | PROVIDERS: PCP Family Medicine Geriatric Medicine; Referring Provider Orthopaedic Surgery Sports Medicine; Visit Provider Orthopaedic Surgery Sports Medicine | DX: S76.012D Strain of muscle, fascia and tendon of left hip, subsequent encounter (principal); X58.XXXD Exposure to other specified factors, subsequent encounter | CPT/HCPCS: 97164 ==

== ENCOUNTER → 2022-03-27 | Outpatient (CLI) | payer MEDICAID, SELFPAY ==
[2022-03-27 15:29] LABS: Absolute Lymphocyte Count 2.26 X10^3/uL (0.83-4.51); Absolute Neutrophil Count 5.2 X10^3/uL (2.0-7.7); Basophil# 0.04 X10^3/uL; Basophil% 0.5 % (0-1); Eosinophil# 0.29 X10^3/uL; Eosinophils% 3.4 % (0-5); Hematocrit 42.7 % (37-47); Hemoglobin 14.1 g/dL (12.0-15.0); Lymphocyte # 2.26 X10^3/ul (0.83-4.51); Lymphocyte % 26.7 % (19-41); Mean Corpuscular Hgb 29.3 pg (27.0-32.0); Mean Corpuscular Volume 88.8 fL (81-99); Monocyte# 0.67 X10^3/uL; Monocyte% 7.9 % (0-10); NRBC Flagged by Analyzer 0 % (0-5); Neutrophil # 5.16 X10^3/uL (2.7-7.7); Platelet Count 378 K/mm3 (150-450); RBC Distribution Width CV 13.3 % (11.6-14.6); RBC Distribution Width SD 43.5 fl (35.1-43.9); Red Blood Count 4.81 M/mm3 (4.2-5.4); White Blood Count 8.5 K/mm3 (4.4-11.0)
[2022-03-27 15:54] LABS: ALB/GLOB Ratio 0.9 RATIO (0.9-2.4); AST(SGOT) 19 U/L (15-37); Alanine Aminotransfer ALT/SGPT 41 U/L (13-56); Albumin, Serum 3.4 g/dL (3.2-5.0); Alkaline Phosphatase 119 U/L (45-117); Anion Gap 5 (5-15); BUN 17 mg/dL (7-18); BUN/Creat Ratio 21.4 RATIO (10-20); Calcium,Total 9.5 mg/dL (8.5-10.1); Chloride 106 mmol/L (98-107); EST Glomerular Filtration Rate 81 mL/min (>60); Est Glom Filt Rate - Afr Amer 97 mL/min (>60); Globulin 3.6 g/dL (2.2-4.2); Glucose 94 mg/dL (74-106); Potassium 3.7 mmol/L (3.5-5.1); Sodium Level 140 mmol/L (136-145); Thyroid Stim Hormone (TSH) 2.69 uIU/mL (0.358-3.74)
== END | disposition home or self-care (01) ==
LOC: POLAB3 09:07
PROVIDERS: PCP Family Medicine Geriatric Medicine; Visit Provider Family Medicine Geriatric Medicine
DX: I10 Essential (primary) hypertension (principal)
CPT/HCPCS: 36415; 80053; 84443; 85025

== ENCOUNTER 2022-04-26 12:00 | Outpatient (RCR) | payer MEDICAID, SELFPAY ==
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
--- NOTE | 2021-12-12 10:29 | HP.PTREVAL_ITS ---
JERRY CONNOLLY, It has been my pleasure to treat JERAMY RICKETTS over the last 7 visits for S/P ENDOSCOPIC GLUTEAL REPAIR 10/17/21, L HIP BURSITIS AND STRAIN. Please see the progress note below for an update on the physical therapy plan of care! Subjective: PATIENT REPORTS SHE IS FEELS LIKE SHE HAS REALLY COME A LONG WAY SINCE SURGERY. Objective/Function: PATIENT WAS SEEN TODAY FOR RE-ASSESSMENT OF PROGRESS TOWARD THE SET PT GOALS AND THE NEED FOR FURTHER PHYSICAL THERAPY VS READINESS FOR DISCHARGE. PATIENT IS PROGRESSING NICELY WITH PT AND IS APPROPRIATE FOR FURTHER AQUATIC THERAPY INSTRUCTION AT THIS TIME TO EDUCATE FOR INDEP POOL EX WITH MEMBERSHIP BETWEEN PT JARED'TS. PATIENT HAS ORDER FROM SURGEON OK'ING POOL THERAPY. UPON EXAM TODAY: THIS PATIENT AMBULATES INDEP'LY INTO PT WBAT ON L LE WITH INCREASED LLE ER AND DECREASED WB TIME ON LLE X > 150 FEET. INSTRUCTED PATIENT IN CONTINUED USE OF CANE NEEDED TO NORMALIZE GAIT. SHE IS NOW ABLE TO TRANSFER INDEP;LY FORM SIT TO STAND WITHOUT UE ASSIST. SHE SITS WITH EQUAL WEIGHT BEARING ON THE LEFT HIP AND RIGHT NOW. Motor deficit: L HIP 3+/5, L KNEE 4-/5, L ANKLE STRENGTH 5/5. TRANSFER SIT TO SUPINE IS NOW INDEP WITHOUT UE ASSSIT TO LLE. Sensory deficit: L LE LIGHT TOUCH SENSATION GROSSLY INTACT. ROM deficit: PASSIVE HIP FLEXION TO 112 DEG, ABD 50 DEG. L KNEE ROM IN SUPINE WITH A HEEL SLIDE = FULL EXT TO 120 DEG FLEX. Core strength: POOR. OTHER: PATIENT HAS MILD EDEMA INTO LEFT FOOT AND TOES. MOD L KNEE EDEMA ( PROBALBE L TKR PENDING SOON PER PATIENT ). OTHER: PATIENT ALSO ABLE TO TOLERATE SUPINE LYING NOW. Plan Plan: ARTHROSCOPIC GLUTEUS MEDIUS REPAIR [facility] PROTOCOL (IN WORK ROOM). CONTINUE LAND PT ONCE A WEEK AND CHANGE TO POOL THERAPY ONCE A WEEK. PATIENT PLANS TO COME TO ONCE A WEEK ON HER OWN IN ADDITION TO THESE VISITS SO PLEASE EDUCATE ON SAFE INDEP LAND/POOL EX BETWEEN JARED'TS. Balance/Gait/Functional tests - Balance/Special Test Scores Lower Extremity Functional Score: 31 Goals Goal 1:: PROTECT REPAIRED TISSUE Goal 2:: RESTORE FULL HIP ROM ALLOWED BY PROTOCOL ROM LIMITATIONS Goal Time Frame: 8-12 Weeks Goal 3:: RESTORE FULL FUNCTION AND STRENGTH OF LEFT HIP Goal Time Frame: 8-12 Weeks Goal 4:: NORMALIZED GAIT PATTERN X COMMUNITY DISTANCES WITH GOAL OF DISCHARGING ASSISTVE DEVICE 8-10 WEEKS PO. Goal Time Frame: 8-12 Weeks Goal 5:: FULL (5/5) AND SYMMETRICAL SUGEY LE MUSCLE STRENGTH BY DISCHARGE Goal Time Frame: 8-12 Weeks Goal 6:: SPIRITISM OF PRE-OP CARDIOVASCULAR ENDURANCE AND OVERALL FUNCTION FOR RETURN TO WORK Goal Time Frame: 12-16 Weeks Anticipated Interventions Patient/Client Instruction: Educate patient on: Condition, Plan of Care, Risk Factors, Benefits of Fitness Program For the Purpose of:: To improve self management Therapeutic Exercise to Include: Strength training, Endurance training, Body mechanics, Postural training, Flexibilty training, Gait and locomotor training, Neuromotor development, In an aquatic setting, Passive ROM, Active ROM Comment: PATIENT WOULD LIKE TO RETURN TO WATER EX WHEN ALLOWED BY SURGEON For the Purpose of:: To decrease pain, To increase ROM, To improve nutrient delivery to tissue, To improve muscle performance and motor function, To improve ability to perform ADL's, To increase tolerance to activity/condition/position, To improve ability of physical actions for home/community/work/leisure, To improve gait and locomotor functions, To improve endurance Please do not hesitate to contact me at [phone] by phone or if you have questions or concerns regarding this new plan of care! Sincerely, Dia Clemons, PT, Cert MDT
--- NOTE | 2022-01-01 13:24 | HP.PTDCSUM_ITS ---
It has been my pleasure to treat JERAMY RICKETTS referred by JERRY CONNOLLY, with the diagnosis of S/P ENDOSCOPIC GLUTEAL REPAIR 10/17/21, L HIP BURSITIS AND STRAIN for a total of 13 visit(s). Discharge Date: 01/01/22 Please see the following information for a summary of their discharge status. Subjective: PATIENT REPORTS SHE STILL LIMPS A LITTLE BIT AND IT GETS SORE IF SHE SITS TOO LONG BUT I'VE MADE A HUGE IMPROVEMENT AND I AM HAPPY. PATIENT REPORTS HER HIP FEELS REALLY GOOD AND SHE KNOWS WHAT TO DO ON HER OWN. SHE HAS MEMBERSHIP HERE AT [employer] TO USE THE POOL. left hip Pain Intensity (Out of 10): 2 % Improvement: 90 Objective/Function: PATIENT WAS SEEN TODAY FOR RE-ASSESSMENT OF PROGRESS TOWARD THE SET PT GOALS AND THE NEED FOR FURTHER PHYSICAL THERAPY VS READINESS FOR DISCHARGE. PATIENT HAS MADE GREAT PROGRESS WITH PT AND IS NOT QUITE READY TO PROGRESS TO PHASE III IN PROTOCOL DUE TO DATE OF SURGERY AND ABNORMAL GAIT PATTERN. ALSO, HER LLE ROM IS WITHIN 10% OF NON-OPERATIVE RLE. SHE IS ABLE TO SLS X 30 SEC ON LLE BUT NOT QUITE ABLE TO MAINTAIN PELVIC ALIGNMENT. LLE HIP FLEXOR, GLUT MED, ADD, EXT, ER AND IR STRENGTH IS 4/5. I EXPECT ALL OF THESE LIMITATIONS TO IMPROVE WITH TIME WITH HER HOME EX PROGRAMS ON LAND AND IN THE WATER. WE WOULD BE HAPPY TO RESUME PT NEEDED/INDICATED. Goal 1:: PROTECT REPAIRED TISSUE Goal Progress: Goal Met Goal 2:: RESTORE FULL HIP ROM ALLOWED BY PROTOCOL ROM LIMITATIONS Goal Progress: Progressing Goal 3:: RESTORE FULL FUNCTION AND STRENGTH OF LEFT HIP Goal Progress: Progressing Goal 4:: NORMALIZED GAIT PATTERN X COMMUNITY DISTANCES WITH GOAL OF DISCHARGING ASSISTVE DEVICE 8-10 WEEKS PO. Goal Progress: Progressing Goal 5:: FULL (5/5) AND SYMMETRICAL SUGEY LE MUSCLE STRENGTH BY DISCHARGE Goal Progress: Progressing Goal 6:: MOSQUE OF PRE-OP CARDIOVASCULAR ENDURANCE AND OVERALL FUNCTION FOR RETURN TO WORK Goal Progress: Progressing Plan: DISCHARGE TO INDEP HOME AND POOL EX PROGRAMS AT PATIENTS REQUEST. SURGICAL FOLLOW UP PENDING NEXT WEEK. If there are questions or concerns regarding this patient's physical therapy, please feel free to call me at [phone]. Thank you for the referral of this patient. Sincerely, Dia Clemons, PT, Cert MDT Balance/Gait/Functional tests - Balance/Special Test Scores Lower Extremity Functional Score: 54
--- NOTE | 2022-01-29 13:26 | HP.PTREVAL_ITS ---
JERRY CONNOLLY, It has been my pleasure to treat JERAMY RICKETTS over the last 14 visits for S/P ENDOSCOPIC GLUTEAL REPAIR 10/17/21, L HIP BURSITIS AND STRAIN. Please see the progress note below for an update on the physical therapy plan of care! Subjective: PATIENT REPORTS THE DOCTOR IS HAPPY WITH HER PROGRESS AND FEELS LIKE SHE IS WHERE SHE SHOULD BE IN HER RECOVERY BUT FEELS SHE NEEDS MORE PT. PATIENT REPORTS SHE WAS WALKING THROUGH HER YARD SAT 01/19/22, STEPPED IN A HOLE WITH HER SURGERY LEG (L) AND FELL. SHE LANDED WITH ALL OF HER WEIGHT ON HER LEFT KNEE. SHE SAW HER SURGEON DR. JEAN AFTER THE FALL AND REC'D X-RAYS THAT WERE FINE. SHE REPORTS HER HIP IS STILL MORE SORE FROM THE FALL. PATIENT REPORTS SHE REALLY HAS TO TAKE IT SLOW WALKING IF SHE SITS TOO LONG. PATIENT REPORTS SHE HAS ONLY BEEN TO THE POOL TO EX A FEW TIMES SINCE LAST PT JARED'T. SHE REPORTS SHE HAS CONTINUED HER HEP. Objective/Function: PATIENT WAS SEEN TODAY FOR RE-ASSESSMENT OF PROGRESS TOWARD THE SET PT GOALS AND THE NEED FOR FURTHER PHYSICAL THERAPY VS READINESS FOR DISCHARGE. PATIENT WAS MAKING GREAT PROGRESS WITH PT AND WASN'T QUITE READY TO PROGRESS TO PHASE III IN PROTOCOL LAST VISIT BUT NOW SHE IS. HER GAIT PATTERN IS NORMALIZING AND HER LLE ROM IS SIMILAR TO THE NON-OPERATIVE RLE NOW. SHE IS ABLE TO SLS X 30 SEC ON LLE AND MAINTAIN PELVIC ALIGNMENT BUT THIS ACTIVITY DOES PROVOKE SOME PAIN. LLE HIP FLEXOR, GLUT MED, ADD, EXT, ER AND IR STRENGTH IS 4+/5. SHE HAD A FALL PRIOR TO SURGEON RE-CHECK AND NEW ORDERS REC'D TO RESUME PT AND PROGRESS PER PROTOCOL. OTHER: BRIEF HEP CHECK AND INSTRUCTION IN WALKING PROGRAM - [facility]. Plan Plan: *CHECK AUTH: RECORD # OF VISITS APPROVED AND EXPIRATION DATE. CHECK CODES APPROVED WITH POC*. PROGRESS TO PHASE III ARTHROSCOPIC GLUTEUS MEDIUS REPAIR [facility] PROTOCOL (IN WORK ROOM) AFTER RE-ACCLIMATING PATIENT TO REGULAR EX. REVIEW PRIOR PHASE EX'S AND ACTIVITIES WITH PATIENT. Balance/Gait/Functional tests - Balance/Special Test Scores Lower Extremity Functional Score: 51 Goals Goal 1:: PROTECT REPAIRED TISSUE Goal Progress: Goal Met Goal 2:: RESTORE FULL HIP ROM ALLOWED BY PROTOCOL ROM LIMITATIONS Goal Time Frame: 8-12 Weeks Goal Progress: Progressing Goal 3:: RESTORE FULL FUNCTION AND STRENGTH OF LEFT HIP Goal Time Frame: 8-12 Weeks Goal Progress: Progressing Goal 4:: NORMALIZED GAIT PATTERN X COMMUNITY DISTANCES WITH GOAL OF DISCHARGING ASSISTVE DEVICE 8-10 WEEKS PO. Goal Time Frame: 8-12 Weeks Goal Progress: Progressing Goal 5:: FULL (5/5) AND SYMMETRICAL SUGEY LE MUSCLE STRENGTH BY DISCHARGE Goal Time Frame: 8-12 Weeks Goal Progress: Progressing Goal 6:: MUSLIM OF PRE-OP CARDIOVASCULAR ENDURANCE AND OVERALL FUNCTION FOR RETURN TO WORK Goal Time Frame: 12-16 Weeks Goal Progress: Progressing Anticipated Interventions Patient/Client Instruction: Educate patient on: Condition, Plan of Care, Risk Factors, Benefits of Fitness Program For the Purpose of:: To improve self management Therapeutic Exercise to Include: Strength training, Endurance training, Body mechanics, Postural training, Flexibilty training, Gait and locomotor training, Neuromotor development, In an aquatic setting, Passive ROM, Active ROM Comment: PATIENT WOULD LIKE TO RETURN TO WATER EX WHEN ALLOWED BY SURGEON For the Purpose of:: To decrease pain, To increase ROM, To improve nutrient delivery to tissue, To improve muscle performance and motor function, To improve ability to perform ADL's, To increase tolerance to activity/condition/position, To improve ability of physical actions for home/community/work/leisure, To improve gait and locomotor functions, To improve endurance Please do not hesitate to contact me at [phone] by phone or if you have questions or concerns regarding this new plan of care! Sincerely, Dia Clemons, PT, Cert MDT
--- NOTE | 2022-04-04 14:08 | HP.PTREVAL ---
JERRY CONONLLY, It has been my pleasure to treat JERAMY RICKETTS over the last 24 visits for S/P ENDOSCOPIC GLUTEAL REPAIR 10/17/21, L HIP BURSITIS AND STRAIN. Please see the progress note below for an update on the physical therapy plan of care! Subjective: PATIENT REPORTS SHE TRIED TO GO BACK TO WORK (LAST WEEK AND THE WEEK BEFORE) 3 HOURS A DAY AND HAS BEEN HURTING EVER SINCE. STATES THE DOCTOR TOOK HER BACK OFF WORK. PATIENT REPORTS THAT WORK IS A LOT OF STANDING AND WALKING AND ALWAYS ON THE MOVE. SHE REPORTS TRYING TO GO BACK TO WORK REALLY HAS EVERYTHING FLARED UP. PATIENT REPORTS LAST SESSION WAS TOO MUCH AND MORE PAIN SINCE LAST SESSION TOO. Objective/Function: PATIENT WAS SEEN TODAY FOR RE-ASSESSMENT OF PROGRESS TOWARD THE SET PT GOALS AND THE NEED FOR FURTHER PHYSICAL THERAPY VS READINESS FOR DISCHARGE. PATIENT WAS MAKING SLOW PROGRESS TOWARD ALL PT GOALS UNTIL SHE TRIED TO GO BACK TO WORK AND TRIED TO INCREASE STRENGTHENING. SHE DID ALSO HAVE A FALL DURING THIS EPISODE OF CARE. SHE IS A GOOD CANDIDATE TO CONTINUE PT AT THIS POINT TO TRY TO SETTLE HER PAIN BACK DOWN AND PROGRESS STRENGTHENING TOLERATED. SHE IS AGREEABLE. CURRENTLY SHE IS HAVING INCREASED DIFFICULTY WITH GAIT AND LIMPING SIGNIFICANTLY ON HER LLE. SHE IS ALSO ONLY ABLE TO TOLERATE ABOUT 10 SEC OF SLS ON THE LEFT LE AND SHE DOES NOT HAVE GOOD PELVIC STABILIZATION DURING SLS NOW. LEFT HIP STRENGTH IS GROSSLY 4-/5 TODAY. Plan Plan: CONTINUE PER PROTOCOL TOLERATED. Balance/Gait/Functional tests - Balance/Special Test Scores Lower Extremity Functional Score: 39 Goals Goal 1:: PROTECT REPAIRED TISSUE Goal Progress: Goal Met Goal 2:: RESTORE FULL HIP ROM ALLOWED BY PROTOCOL ROM LIMITATIONS Goal Time Frame: 8-12 Weeks Goal Progress: DDD Goal 3:: RESTORE FULL FUNCTION AND STRENGTH OF LEFT HIP Goal Time Frame: 8-12 Weeks Goal Progress: Not Progressing Goal 4:: NORMALIZED GAIT PATTERN X COMMUNITY DISTANCES WITH GOAL OF DISCHARGING ASSISTVE DEVICE 8-10 WEEKS PO. Goal Time Frame: 8-12 Weeks Goal Progress: Not Progressing Goal 5:: FULL (5/5) AND SYMMETRICAL SUGEY LE MUSCLE STRENGTH BY DISCHARGE Goal Time Frame: 8-12 Weeks Goal Progress: Not Progressing Goal 6:: LUTHERAN OF PRE-OP CARDIOVASCULAR ENDURANCE AND OVERALL FUNCTION FOR RETURN TO WORK Goal Time Frame: 12-16 Weeks Goal Progress: Not Progressing Anticipated Interventions Patient/Client Instruction: Educate patient on: Condition, Plan of Care, Risk Factors, Benefits of Fitness Program For the Purpose of:: To improve self management Therapeutic Exercise to Include: Strength training, Endurance training, Body mechanics, Postural training, Flexibilty training, Gait and locomotor training, Neuromotor development, In an aquatic setting, Passive ROM, Active ROM Comment: PATIENT WOULD LIKE TO RETURN TO WATER EX WHEN ALLOWED BY SURGEON For the Purpose of:: To decrease pain, To increase ROM, To improve nutrient delivery to tissue, To improve muscle performance and motor function, To improve ability to perform ADL's, To increase tolerance to activity/condition/position, To improve ability of physical actions for home/community/work/leisure, To improve gait and locomotor functions, To improve endurance Please do not hesitate to contact me at [phone] by phone or if you have questions or concerns regarding this new plan of care! Sincerely, Dia Clemons, PT, Cert MDT
--- NOTE | 2022-05-01 08:30 | HP.PT.NRP ---
JERAMY RICKETTS was seen in my office for initial evaluation on 11/07/21. The following Plan of Care was established for this patient: Initial Frequency: 2-3x /Week Initial Duration: 8-12 WEEKS Patient/Client Instruction: Educate patient on: Condition, Plan of Care, Risk Factors, Benefits of Fitness Program For the Purpose of:: To improve self management Therapeutic Exercise to Include: Strength training, Endurance training, Body mechanics, Postural training, Flexibilty training, Gait and locomotor training, Neuromotor development, In an aquatic setting, Passive ROM, Active ROM For the Purpose of:: To decrease pain, To increase ROM, To improve nutrient delivery to tissue, To improve muscle performance and motor function, To improve ability to perform ADL's, To increase tolerance to activity/condition/position, To improve ability of physical actions for home/community/work/leisure, To improve gait and locomotor functions, To improve endurance This patient was last seen in our office . Pertinent comments regarding their Physical therapy will appear below: I RECEIVED A NOTE STATING PATIENT CANCELLED ALL REMAINING JARED'TS PER HER DOCTOR SHE NO LONGER NEEDS THERAPY. At this point I will be discontinuing this patient from physical therapy. I would be happy to see this patient again in the future if found appropriate by the physician. Thank you! Dia Clemons, PT, Cert MDT Balance/Gait/Functional tests - Balance/Special Test Scores Lower Extremity Functional Score: 39
== END 2022-04-26 19:00 | disposition home or self-care (01) ==
LOC: PT 12:00
PROVIDERS: PCP Family Medicine Geriatric Medicine
DX: M70.62 Trochanteric bursitis, left hip (principal); S76.012D Strain of muscle, fascia and tendon of left hip, subsequent encounter; X58.XXXD Exposure to other specified factors, subsequent encounter
CPT/HCPCS: 97110; 97113; 97162; 97164; 97530

== ENCOUNTER 2022-06-19 09:13 | Outpatient (CLI) | payer MEDICAID, SELFPAY ==
[2022-06-19 12:20] LABS: Absolute Lymphocyte Count 2.65 X10^3/uL (0.83-4.51); Absolute Neutrophil Count 5.6 X10^3/uL (2.0-7.7); Basophil# 0.05 X10^3/uL; Basophil% 0.5 % (0-1); Eosinophil# 0.84 X10^3/uL; Eosinophils% 8.6 % (0-5); Hematocrit 44.2 % (37-47); Hemoglobin 14.8 g/dL (12.0-15.0); Lymphocyte # 2.65 X10^3/ul (0.83-4.51); Lymphocyte % 27.1 % (19-41); Mean Corp Hgb Conc 33.5 g/dL (32-36); Mean Corpuscular Hgb 29.7 pg (27.0-32.0); Mean Corpuscular Volume 88.6 fL (81-99); Monocyte# 0.57 X10^3/uL; Monocyte% 5.8 % (0-10); NRBC Flagged by Analyzer 0 % (0-5); Neutrophil # 5.61 X10^3/uL (2.7-7.7); Neutrophil % 57.4 % (47-70); Platelet Count 381 K/mm3 (150-450); RBC Distribution Width CV 13.5 % (11.6-14.6); RBC Distribution Width SD 43.8 fl (35.1-43.9); Red Blood Count 4.99 M/mm3 (4.2-5.4); White Blood Count 9.8 K/mm3 (4.4-11.0)
[2022-06-19 12:41] LABS: Vitamin D,25 Hydroxy 31.7 ng/mL
[2022-06-19 13:15] LABS: AST(SGOT) 12 U/L (15-37); Alanine Aminotransfer ALT/SGPT 27 U/L (13-56); Albumin, Serum 3.6 g/dL (3.2-5.0); Alkaline Phosphatase 123 U/L (45-117); Anion Gap 10 (5-15); BUN 17 mg/dL (7-18); BUN/Creat Ratio 21.4 RATIO (10-20); Calcium,Total 9.8 mg/dL (8.5-10.1); Chloride 107 mmol/L (98-107); Creatinine, Serum 0.79 mg/dL (0.55-1.02); EST Glomerular Filtration Rate 81 mL/min (>60); Est Glom Filt Rate - Afr Amer 98 mL/min (>60); Globulin 3.7 g/dL (2.2-4.2); Glucose 144 mg/dL (74-106); Potassium 3.8 mmol/L (3.5-5.1); Protein, Total 7.3 g/dL (6.4-8.2); Sodium Level 139 mmol/L (136-145); Thyroid Stim Hormone (TSH) 2.24 uIU/mL (0.358-3.74)
== END 2022-06-19 23:59 | disposition home or self-care (01) ==
LOC: POLAB3 09:13
PROVIDERS: PCP Family Medicine Geriatric Medicine; Visit Provider Family Medicine Geriatric Medicine
DX: E55.9 Vitamin D deficiency, unspecified (principal); I10 Essential (primary) hypertension
CPT/HCPCS: 36415; 80053; 82306; 84443; 85025

== ENCOUNTER → 2022-09-18 | Outpatient (CLI) | payer MEDICAID, SELFPAY ==
[2022-09-18 13:04] LABS: Absolute Lymphocyte Count 1.84 X10^3/uL (0.83-4.51); Absolute Neutrophil Count 4.9 X10^3/uL (2.0-7.7); Basophil# 0.05 X10^3/uL; Basophil% 0.7 % (0-1); Eosinophil# 0.31 X10^3/uL; Eosinophils% 4.1 % (0-5); Hematocrit 47.3 % (37-47); Hemoglobin 15.7 g/dL (12.0-15.0); Lymphocyte # 1.84 X10^3/ul (0.83-4.51); Lymphocyte % 24.1 % (19-41); Mean Corp Hgb Conc 33.2 g/dL (32-36); Mean Corpuscular Volume 87.4 fL (81-99); Mean Platelet Vol. 9.1 fl (6.2-12.0); Monocyte# 0.52 X10^3/uL; Monocyte% 6.8 % (0-10); NRBC Flagged by Analyzer 0 % (0-5); Neutrophil # 4.87 X10^3/uL (2.7-7.7); Neutrophil % 63.8 % (47-70); Platelet Count 416 K/mm3 (150-450); RBC Distribution Width CV 13.4 % (11.6-14.6); RBC Distribution Width SD 42.8 fl (35.1-43.9); Red Blood Count 5.41 M/mm3 (4.2-5.4); White Blood Count 7.6 K/mm3 (4.4-11.0)
[2022-09-18 13:44] LABS: AST(SGOT) 17 U/L (15-37); Alanine Aminotransfer ALT/SGPT 30 U/L (13-56); Albumin, Serum 3.7 g/dL (3.2-5.0); Alkaline Phosphatase 129 U/L (45-117); Anion Gap 12 (5-15); BUN 15 mg/dL (7-18); BUN/Creat Ratio 17.3 RATIO (10-20); Calcium,Total 10.1 mg/dL (8.5-10.1); Chloride 106 mmol/L (98-107); Creatinine, Serum 0.87 mg/dL (0.55-1.02); EST Glomerular Filtration Rate 73 mL/min (>60); Est Glom Filt Rate - Afr Amer 88 mL/min (>60); Globulin 3.8 g/dL (2.2-4.2); Glucose 104 mg/dL (74-106); Potassium 3.8 mmol/L (3.5-5.1); Protein, Total 7.5 g/dL (6.4-8.2); Sodium Level 139 mmol/L (136-145); Thyroid Stim Hormone (TSH) 2.15 uIU/mL (0.358-3.74)
[2022-09-18 14:01] LABS: Hepatitis C Antibody Non-Reactive (Nonreactive)
== END | disposition home or self-care (01) ==
PROVIDERS: PCP Family Medicine Geriatric Medicine; Visit Provider Family Medicine Geriatric Medicine
DX: I10 Essential (primary) hypertension (principal); Z13.89 Encounter for screening for other disorder
CPT/HCPCS: 36415; 80053; 84443; 85025; 86803

== ENCOUNTER 2022-10-01 12:00 | Outpatient (RCR) | payer MEDICAID, SELFPAY ==
--- NOTE | 2022-09-04 13:57 | HP.PTEVAL_ITS ---
Patient's Visit Information JERAMY RICKETTS is a 51 year old F referred to Physical Therapy by Dr. Major Wray MD with a diagnosis of STRAIN OF MUSCLE FASCIA AND TENDON OF LEFT HIP SUBSEQUENT ECOUNTER. Date of Evaluation: 09/04/22 Physical Therapist: Dakota Thornton, PT, Cert MDT, OCS - Visit Plan Frequency: 2x /Week Duration: 12WEEKS Plan: S/P left scope revision with gluteus Medius and minimums repair ,trochanteric bursectomy and iliotibial band resection 08/21/22. LLE NWB with crutches. SEE PROTOCAL FOR PROGRESSION. PT INTEVETION PER PROTICAL WITH ROM WITH RESTRICTIONS ,GAIT TRAINING WITH WB PROGTRESSION ,STRENGTHENING CORE AND QUADS/HAMS/HIP ,FUNCTIONAL STRENTHENING ,BALANCE ,CP/MHP AND MANUAL THERAPY - Subjective This 51 y/o female presents to physical therapy s/p revision with gluteus Medius and minimus repair. Patient recently fell May 2022 at home on left on floor slipped caused immediate pain . Patient seen DR ~ 2weeks had MRI showed re-tore gluteus Medius and Minimus. Patient thus underwent s/p revision gluteus Medius and and minimus repair trochanteric bursectomy and iliotibial band resection on 08/21/[address] Wray at [facility]. D/C with crutches NWB LLE x 6weeks has protocal for guidelines, plans to RTD October 04. Patient had 1st surgery October 17 and had Rehab at ~ 3 months. Patient taking no medication . Patient unable to drive. Patient denies denies paresthesia/tingling. Patient has difficulty sleeping. Patient lives with kids home in mobile home 3 steps with railing. Patient has tub/shower with seat. [facility] and hospital . Patient is able to dress self and unable to cook and cleaning. Patient goals to return to prior level and function. SOCAIL: single - Objective POSTURE: mild forward. GAIT: ambulates with crutches NWB LLE. SKIN: incision well approximate. EDEMA: absent. NEURO: denies paresthesia/tingling. PROM: hip flexion 90 degrees ,hip abduction 20 degrees ,ER /IR/EXT 0 degrees. MMT( peak force ) quads 12.7,hamstring 8.7, hip flexion/abduction/extension 0 degrees. STAIRS : one step with crutches with NWB LLE - Balance/Special Test Scores Lower Extremity Functional Score: 10 - Goals Goal 1:: Patient to be I with hip protocal Goal Time Frame: 8-12 Weeks Goal 2:: Patient to demonstrate normal polly with gait Goal Time Frame: 8-12 Weeks Goal 3:: Patient to demonstrate 75% improvement with function and ADLS' Goal Time Frame: 8-12 Weeks Goal 4:: Patienet to increase peak force MMT by 20 or> to improve gait and function and gait for proprioception. Goal Time Frame: 8-12 Weeks Goal 5:: Patient to increase AROM hip WFL to improve function and gait. Goal Time Frame: 8-12 Weeks Goal 6:: Patient to improve LFES score by 10 -15 points to improve QOL and function. Goal Time Frame: 8-12 Weeks - Rehabilitation Potential Physical Therapy Diagnosis: This patient had left scope revision with gluteus Medius and minimums repair ,trochanteric bursectomy and iliotibial band resection 08/21/22 with decrease gait with NWB LLE ,decrease ROM and strength with restrictions and function thus benefit for skilled PT Rehabilitation Potential: Good - Anticipated Interventions Patient/Client Instruction: Educate patient on: Condition, Plan of Care For the Purpose of:: To decrease pain, To increase ROM, To improve muscle performance and motor function, To increase tolerance to activity/condition/position, To improve ability of physical actions for home/community/work/leisure, To improve health of tissue, To decrease soft tissue restriction, To increase flexibility/ROM, To improve endurance, To improve balance, To improve tolerance to ADL's Therapeutic Exercise to Include: Strength training, Endurance training, Balance training, Postural training, Flexibilty training, Gait and locomotor training, Active ROM Comment: see protocal For the Purpose of:: To decrease pain, To increase ROM, To improve muscle performance and motor function, To improve ability to perform ADL's, To increase tolerance to activity/condition/position, To improve ability of physical actions for home/community/work/leisure, To improve health of tissue, To decrease soft tissue restriction, To increase flexibility/ROM, To improve endurance, To improve tolerance to ADL's Manual Therapy Techniques to Include: Mobilization, Passive ROM Comment: hip For the Purpose of:: To decrease pain, To increase ROM, To increase oxygenation perfusion, To improve muscle performance and motor function, To improve health of tissue, To decrease soft tissue restriction Thank you for the opportunity to evaluate your patient. For Medicare and Medicare HMO plans, please review the plan of care and approve it. It will need to be FAXED BACK to us at [phone] for Medicare purposes. For Medicare only, by signing this I certify the plan of care. Please let me know if there are questions or concerns regarding this plan of care. Physician Signature: Date:
--- NOTE | 2023-03-02 18:53 | HP.PT.NRP ---
Patient Information Patient Information: JERAMY RICKETTS was seen in my office for initial evaluation on 09/04/22. The following Plan of Care was established for this patient: POC Established Initial Frequency: 2x /Week Initial Duration: 12WEEKS Anticipated Interventions Patient/Client Instruction: Educate patient on: Condition and Plan of Care For the Purpose of:: To decrease pain, To increase ROM, To improve muscle performance and motor function, To increase tolerance to activity/condition/position, To improve ability of physical actions for home/community/work/leisure, To improve health of tissue, To decrease soft tissue restriction, To increase flexibility/ROM, To improve endurance, To improve balance and To improve tolerance to ADL's Therapeutic Exercise to Include: Strength training, Endurance training, Balance training, Postural training, Flexibilty training, Gait and locomotor training and Active ROM For the Purpose of:: To decrease pain, To increase ROM, To improve muscle performance and motor function, To improve ability to perform ADL's, To increase tolerance to activity/condition/position, To improve ability of physical actions for home/community/work/leisure, To improve health of tissue, To decrease soft tissue restriction, To increase flexibility/ROM, To improve endurance and To improve tolerance to ADL's Manual Therapy Techniques to Include: Mobilization and Passive ROM Comment: hip For the Purpose of:: To decrease pain, To increase ROM, To increase oxygenation perfusion, To improve muscle performance and motor function, To improve health of tissue and To decrease soft tissue restriction Last Seen Last Seen: This patient was last seen in our office . Pertinent comments regarding their Physical therapy will appear below: S/P left scope revision with gluteus Medius and minimums repair ,trochanteric bursectomy and iliotibial band resection 08/21/22 with protocol progression thus is d/c At this point I will be discontinuing this patient from physical therapy. I would be happy to see this patient again in the future if found appropriate by the physician. Thank you! Dakota Thornton, PT, Cert MDT, OCS Balance/Gait/Functional tests Balance/Special Test Scores Lower Extremity Functional Score: 10
== END 2022-10-01 19:00 | disposition home or self-care (01) ==
LOC: PT 12:00
PROVIDERS: PCP Family Medicine Geriatric Medicine; Referring Provider Orthopaedic Surgery Sports Medicine; Visit Provider Orthopaedic Surgery Sports Medicine
DX: S76.012D Strain of muscle, fascia and tendon of left hip, subsequent encounter (principal)
CPT/HCPCS: 97110; 97162

== ENCOUNTER → 2022-10-04 | Outpatient (CLI) | payer MEDICAID, SELFPAY ==
--- NOTE | 2022-10-04 08:25 | US_ITS ---
STUDY: ABDOMINAL ULTRASOUND - RIGHT UPPER QUADRANT REASON FOR VISIT: Female, 51 years old ABNORMAL LIVER FUNCTION TECHNIQUE: Ultrasound evaluation of the right upper quadrant was performed with real-time and static mclean-scale imaging. TECHNICAL QUALITY: Adequate. COMPARISON: None. FINDINGS: Liver: The liver measures 16.7 cm. There is increased echogenicity consistent with fatty infiltration. The bile ducts are within normal limits. There is hepatic color flow. The direction of portal flow is hepatopetal. There is no demonstrated mass lesion. Gallbladder: Normal distended gallbladder. The gallbladder wall measures 2.0 mm. There is a negative sonographic Patel''s sign. There is no pericholecystic fluid. There are no gallstones. Common Bile Duct (C.B.D.): The common bile duct measures 6.3 mm. Pancreas: Normal size of the head, body of the pancreas. The tail portion is obscured due to overlying bowel gas. There is normal echogenicity of the pancreas. There is no demonstrated pancreatic mass or cyst. Right Kidney: Normal size of the right kidney. The right kidney measures 12.2 cm x 5.2 cm x 5.5 cm. Normal renal cortex. The right cortex measures 1.7 cm. There is a 1.7 cm x 1.3 cm x 1.3 cm cyst. There is no right hydronephrosis. US/Abdomen Limited IMPRESSION: Fatty infiltration of the liver. Small right renal cyst. Electronically Signed: Grabiel Spence MD at 13:57 EST ,
== END | disposition home or self-care (01) ==
PROVIDERS: PCP Family Medicine Geriatric Medicine; Visit Provider Family Medicine Geriatric Medicine
DX: R94.5 Abnormal results of liver function studies (principal)
CPT/HCPCS: 76705

== ENCOUNTER → 2022-10-08 | Outpatient (CLI) | payer MEDICAID, SELFPAY ==
--- NOTE | 2022-10-04 08:43 | BI_ITS ---
MAMMOGRAPHY - BILATERAL SCREENING REASON FOR EXAM: Female, 51 years old. Routine annual screening examination. PERTINENT HISTORY: Non-contributory. Prior left ultrasound-guided breast biopsy. TECHNIQUE: Digital bilateral breast bc (3D mammographic acquisition) in the CC and MLO projections. 2-D mediolateral oblique (MLO) and craniocaudad (CC) views of both breasts were obtained. CAD: Full Field Digital Mammography with Computer Added Detection was performed. COMPARISON: Comparison is made with prior study dated September 27, 2021. FINDINGS: Breast Composition: There are scattered areas of fibroglandular density. There are no dominant masses or suspicious calcifications. A patient marker is seen in the retroareolar region of the left breast. Stable benign-appearing bilateral axillary lymph nodes. No other significant abnormalities are identified. There has been no significant change since the prior study. BI/SCRN MAMM (CAD)W/BC BILAT IMPRESSION: Stable bilateral screening mammogram. Yearly follow-up mammogram recommended. (A) ASSESSMENT CATEGORY: BIRADS Category 2: Benign. A letter regarding these results will be sent to the patient by the facility within 30 days. Approximately 10% of breast cancers are not detected by mammography. A normal mammogram should not delay biopsy of a clinically suspicious abnormality. [id number] Electronically Signed: Grabiel Spence MD at 10:28 EST ,
== END | disposition home or self-care (01) ==
LOC: OPBI 10-09 12:38
PROVIDERS: PCP Family Medicine Geriatric Medicine; Visit Provider Family Medicine Geriatric Medicine
DX: Z12.31 Encounter for screening mammogram for malignant neoplasm of breast (principal)
CPT/HCPCS: 77063; 77067

== ENCOUNTER → 2023-03-13 | Outpatient (CLI) | payer MEDICAID, SELFPAY ==
[2023-03-13 10:30] LABS: Absolute Neutrophil Count 6.6 X10^3/uL (2.0-7.7); Basophil# 0.07 X10^3/uL; Basophil% 0.7 % (0-1); Eosinophil# 0.81 X10^3/uL; Eosinophils% 7.7 % (0-5); Hematocrit 44.5 % (37-47); Hemoglobin 14.5 g/dL (12.0-15.0); Lymphocyte % 21.9 % (19-41); Mean Corp Hgb Conc 32.6 g/dL (32-36); Mean Corpuscular Hgb 29.2 pg (27.0-32.0); Mean Corpuscular Volume 89.5 fL (81-99); Monocyte# 0.67 X10^3/uL; Monocyte% 6.4 % (0-10); NRBC Flagged by Analyzer 0 % (0-5); Neutrophil % 62.8 % (47-70); Platelet Count 387 K/mm3 (150-450); RBC Distribution Width CV 13.7 % (11.6-14.6); RBC Distribution Width SD 44.4 fl (35.1-43.9); Red Blood Count 4.97 M/mm3 (4.2-5.4); White Blood Count 10.5 K/mm3 (4.4-11.0)
[2023-03-13 11:03] LABS: ALB/GLOB Ratio 0.9 RATIO (0.9-2.4); AST(SGOT) 12 U/L (15-37); Alanine Aminotransfer ALT/SGPT 29 U/L (13-56); Albumin, Serum 3.4 g/dL (3.2-5.0); Alkaline Phosphatase 116 U/L (45-117); Anion Gap 7 (5-15); BUN 19 mg/dL (7-18); BUN/Creat Ratio 24.9 RATIO (10-20); Calcium,Total 9.6 mg/dL (8.5-10.1); Chloride 108 mmol/L (98-107); Cholesterol 181 mg/dL (200); Creatinine, Serum 0.76 mg/dL (0.55-1.02); EST Glomerular Filtration Rate 84 mL/min (>60); Est Glom Filt Rate - Afr Amer 102 mL/min (>60); Globulin 3.6 g/dL (2.2-4.2); Glucose 122 mg/dL (74-106); High Density Lipoprotein 38 mg/dL; Potassium 4.1 mmol/L (3.5-5.1); Sodium Level 137 mmol/L (136-145); Thyroid Stim Hormone (TSH) 2.52 uIU/mL (0.358-3.74); Triglycerides 196 mg/dL; Very Low Density Lipoprotein 39 mg/dL (5-40)
== END | disposition home or self-care (01) ==
PROVIDERS: PCP Family Medicine Geriatric Medicine; Visit Provider Family Medicine Geriatric Medicine
DX: I10 Essential (primary) hypertension (principal); E78.5 Hyperlipidemia, unspecified
CPT/HCPCS: 36415; 80053; 80061; 84443; 85025

== ENCOUNTER → 2023-10-16 | Outpatient (CLI) | payer MEDICAID, SELFPAY ==
--- OUTSIDE RECORDS SUMMARY | 2023-10-16 19:47 | XMS RPT_ITS | CCD ---
Author Name Unknown Address [address] [place] [address] Organization [facility] Care Team Providers Care Wood Gouger Name Role Phone JOSE ALFREDO, DR MALINA [...] Detail Author Start: 04-04-2023 Influenza vaccination C [facility] Start: 08-04-2022 DEPRESSION ASSESSMENT DEPRESSION ASS ESSMENT [facility] Start: 11-10-2019 SHINGRIX VACCINE (1 of 2) SHINGRIX V ACCINE (1 of 2) [facility] Start: 05-12-2017 Urine microalbumin profile [facility] Start: 2014 COLOGUARD (FIT-DNA) COLOGUARD (FIT-D NA) [facility] Start: 2014 Colonoscopy COLONOSCOPY [facility] Start: 2014 COLORECTAL CANCER SCREENING COLORECTAL CANCER SCREENING [facility] Start: [address] COLONOGRAPHY [facility] Start: 2014 DIABETES SCREEN [facility] Start: 2014 Diabetes Screening Diabetes Screenin g [facility] Start: 2014 FECAL OCCULT BLOOD FECAL OCCULT BLOO D [facility] Start: 2014 Lipid 1996 panel - S melissa or Plasma Lipid Screening [facility] Start: 2014 LIPID SCREEN LIPID SCREEN [facility] Start: 2014 SIGMOIDOSCOPY SIGMOIDOSCOPY [facility] Start: 2009 Mammography [facility] Start: 11-10-1999 HPV TESTING HPV TESTING [facility] Start: 1990 PAP TESTING PAP TESTING [facility] Start: 11-10-1987 HEPATITIS C SCREENING HEPATITIS C SC REENING [facility] Start: 11-10-1987 HIV SCREENING HIV SCREENING [facility] Start: 05-11-1970 COVID-19 VACCINE (#1) COVID-19 VACCI NE (#1) [facility] Start: 1969 HEPATITIS B (1 of 3 - 3-dose series) HEPATITIS B (1 of 3 - 3-dose series) [facility] Start: 1969 Hepatitis B Vaccine (1 of 3 - 3-dose series) Hepatitis B Vaccine (1 of 3 - 3-dose series) [facility] Immunizations Immunization Date Immunization Notes Care Provider Parviz sanz 05-12-2007 diphtheria, tetanus toxoids and acellular pertussis vaccine Neurology Provider [facility] Work Phone: Payers Date Payer Category Payer Medicaid [facility] MEDICAID [facility] PL[facility] [place]ICAID [place] [id number] 2022-Present [phone] [address] [place] [address] Medicaid [id number] 1970 Unknown [id number] Private Health Insurance [id number] Social History Date Type Detail Facility [facility] Start: 03-17-2022 Alcohol intake Current non-dr egg setter of alcohol (finding) [facility] Start: 1970 Sex Assigned At Not on file [facility] Gender identity Not on file [facility] inic Note 04-22-2023 Telephone Encounter - [...] Claritza Thompson LPN documented in this encounter [facility] Note 04-08-2023 Telephone Encounter - Tashia [...] office. ABEL May documented in this encounter [facility] Summary Purpose Family History No Family History Records FoundNo Family History Records FoundNo Family History Records Found Advance Directives No Advanced Directives Records FoundNo Advanced Directives Records FoundNo Advanced Directives Records Found Additional Source Comments INFORMATION SOURCE (unrecogn ized section and content) DATE CREATED AUTHOR AUTHOR'S ORGANIZ ATION 06/06/2021 [facility] DATE CREATED AUTHOR AUTHOR'S ORGANIZ ATION 04/24/2023 [facility] Source Comments (unrecognize d section and content) In the event this informatio n is protected by the Federal Confidentiality of Alcohol and Drug Abuse Patient Records regulations: The Federal rules restrict any use of the information to criminally investigate or prosecute any alcohol or drug abuse patient.[facility] the event this information is protected by the Federal Confidentiality of Alcohol and Drug Abuse Patient Records regulations: The Federal rules restrict any use of the information to criminally investigate or prosecute any alcohol or drug abuse patient[facility] Reason for Visit (unrecogniz ed section [...] BE BASED ON THE PRIMARY CLINICAL RECORDS. [employer] [facility]. provides no warranty or guarantee of the accuracy or completeness of information in this document.
== END | disposition home or self-care (01) ==
LOC: RAD 11:20
PROVIDERS: PCP Family Medicine Geriatric Medicine; Referring Provider Family Medicine Geriatric Medicine; Visit Provider Family Medicine Geriatric Medicine
DX: Z00.00 Encounter for general adult medical examination without abnormal findings (principal)

== ENCOUNTER → 2023-10-16 | Outpatient (CLI) | payer MEDICAID, SELFPAY ==
[2023-10-16 11:08] LABS: Absolute Lymphocyte Count 2.43 X10^3/uL (0.83-4.51); Absolute Neutrophil Count 5.1 X10^3/uL (2.0-7.7); Basophil# 0.06 X10^3/uL; Basophil% 0.7 % (0-1); Eosinophil# 0.77 X10^3/uL; Eosinophils% 8.5 % (0-5); Hematocrit 42.8 % (37-47); Hemoglobin 14.1 g/dL (12.0-15.0); Lymphocyte # 2.43 X10^3/ul (0.83-4.51); Mean Corp Hgb Conc 32.9 g/dL (32-36); Mean Corpuscular Hgb 29.3 pg (27.0-32.0); Mean Platelet Vol. 8.9 fl (6.2-12.0); Monocyte# 0.58 X10^3/uL; Monocyte% 6.4 % (0-10); NRBC Flagged by Analyzer 0 % (0-5); Neutrophil # 5.11 X10^3/uL (2.7-7.7); Neutrophil % 56.7 % (47-70); Platelet Count 355 K/mm3 (150-450); RBC Distribution Width CV 13.8 % (11.6-14.6); Red Blood Count 4.81 M/mm3 (4.2-5.4)
[2023-10-16 11:35] LABS: AST(SGOT) 14 U/L (15-37); Alanine Aminotransfer ALT/SGPT 31 U/L (13-56); Albumin, Serum 3.6 g/dL (3.2-5.0); Alkaline Phosphatase 95 U/L (45-117); Anion Gap 7 (5-15); BUN 15 mg/dL (7-18); BUN/Creat Ratio 19.7 RATIO (10-20); Calcium,Total 9.5 mg/dL (8.5-10.1); Chloride 108 mmol/L (98-107); Cholesterol 187 mg/dL (200); Creatinine, Serum 0.76 mg/dL (0.55-1.02); EST Glomerular Filtration Rate 84 mL/min (>60); Est Glom Filt Rate - Afr Amer 102 mL/min (>60); Globulin 3.6 g/dL (2.2-4.2); Glucose 106 mg/dL (74-106); High Density Lipoprotein 47 mg/dL; Potassium 4.1 mmol/L (3.5-5.1); Protein, Total 7.2 g/dL (6.4-8.2); Sodium Level 140 mmol/L (136-145); Thyroid Stim Hormone (TSH) 2.54 uIU/mL (0.358-3.74); Triglycerides 160 mg/dL; Very Low Density Lipoprotein 32 mg/dL (5-40)
--- OUTSIDE RECORDS SUMMARY | 2023-10-16 16:49 | XMS RPT_ITS | CCD ---
Author Name Unknown Address [address] [place] [address] Organization [facility] Care Team Providers Care Foundry Finisher Name Role Phone JOSE ALFREDO, DR MALINA Cuevas Attending Unavaila ble VACCARIELLO, FEDE Consulting Unavailable JOSE ALFREDO, DR MALINA Cuevas Admitting Unavaila ble JOSE ALFREDO, DR MALINA Cuevas Primary Care Unavaila ble PROVIDER, UNKNOWN Consulting Unavailable PROVIDER, UNKNOWN Consulting Unavailable PROVIDER, UNKNOWN Consulting Unavailable Unavailable Primary Care Provider Unavailabl e Results Test Name Value Interpretation Reference Range Facil ity Encounters Encounter Date Encounter Type Care Provider Facility Start: 04-22-2023 Telephone encounter Neurology Provid er Neurology Start: 04-08-2023 Telephone encounter Neurology Provid er Neurology Plan of Treatment Date Care Activity Detail Author Start: 04-04-2023 Influenza vaccination C [facility] Start: 08-04-2022 DEPRESSION ASSESSMENT DEPRESSION ASS ESSMENT [facility] Start: 11-10-2019 SHINGRIX VACCINE (1 of 2) SHINGRIX V ACCINE (1 of 2) [facility] Start: 05-12-2017 Urine microalbumin profile [facility] Start: 2014 COLOGUARD (FIT-DNA) COLOGUARD (FIT-D NA) [facility] Start: 2014 Colonoscopy COLONOSCOPY [facility] Start: 2014 COLORECTAL CANCER SCREENING COLORECTAL CANCER SCREENING [facility] Start: [address] COLONOGRAPHY [facility] Start: 2014 DIABET[facility] Start: 2014 Diabetes Screening Diabetes Screenin g [facility] Start: 2014 FECAL OCCULT BLOOD FECAL OCCULT BLOO D [facility] Start: 2014 Lipid 1996 panel - S melissa or Plasma Lipid Screening [facility] Start: 2014 LIPID SCREEN LIPID SCREEN [facility] Start: 2014 SIGMOIDOSCOPY SIGMOIDOSCOPY [facility] Start: 2009 Mammography [facility] Start: 11-10-1999 HPV TESTING HPV TESTING [facility] Start: 1990 PAP TESTING PAP TESTING [facility] Start: 11-10-1987 HEPATITIS C SCREENING HEPATITIS C SC REENING [facility] Start: 11-10-1987 HIV SCREENING HIV SCREENING [facility] Start: 05-11-1970 COVID-19 VACCINE (#1) COVID-19 VACCI NE (#1) [facility] Start: 1969 HEPATITIS B (1 of 3 - 3-dose series) HEPATITIS B (1 of 3 - 3-dose series) [facility] Start: 1969 Hepatitis B Vaccine (1 of 3 - 3-dose series) Hepatitis B Vaccine (1 of 3 - 3-dose series) [facility] Immunizations Immunization Date Immunization Notes Care Provider Parviz sanz 05-12-2007 diphtheria, tetanus toxoids and acellular pertussis vaccine Neurology Provider [facility] Work Phone: Payers Date Payer Category Payer Medicaid [facility] MEDICAID [facility] PLAN [place]ID [place] [id number] 2022-Present [phone] [address] [place] [address] Medicaid [id number] 1970 Unknown 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 Postal mail received 04/22/[address] Ricardo Valdez's office Polysomnography Report 02/05/2023, medical records scanned into chart, appointment with Dr. Ramos 04/28/2023. Claritza Thompson LPN documented in this encounter [facility] Note 04-08-2023 Telephone Encounter - Tashia Anderson RN - 04/08/2023 3:48 PM EDTTelephone Encounter - Cecilia Llanos OCCA - 04/08/2023 3:23 PM EDT Note Date & Type Note Facility 04-08-2023 Miscellaneous Notes Formattin g of this note might be different from the original. Patient returned call. In response to questions below, patient reports she was referred to neurology by Dr. Cole. Reports she initially saw Dr. Valdez but due to personal reasons has decided to see Dr. Ramos. Pt reports she has had a sleep study completed and results are already being mailed to her. She states she will bring in those results as soon as she receives them by mail, (before her appt on 04/28) if this is okay. Pt reports she does not use a PAP device currently. Tashia Anderson RN Patient is scheduled with Dr. Ramos for NEW sleep patient on 04/28/23. No information or referral in chart. Need to determine if patient has had a sleep study and if so, when and where so that records can be requested. Furthermore, is patient currently using a PAP therapy device and if so, who is her DME company so that a CR can be requested. TC to patient with no answer, left VM to return call to office. ABEL May documented in this encounter [facility] Summary Purpose Family History No Family History Records FoundNo Family History Records FoundNo Family History Records Found Advance Directives No Advanced Directives Records FoundNo Advanced Directives Records FoundNo Advanced Directives Records Found Additional Source Comments INFORMATION SOURCE (unrecogn ized section and content) DATE CREATED AUTHOR AUTHOR'S ORGANIZ ATION 06/06/2021 [facility] DATE CREATED AUTHOR AUTHOR'S ORGANIZ ATION 04/24/[address] [facility] Source Comments (unrecognize d section and content) In the event this informatio n is protected by the Federal Confidentiality of Alcohol and Drug Abuse Patient Records regulations: The Federal rules restrict any use of the information to criminally investigate or prosecute any alcohol or drug abuse patient.[facility] the event this information is protected by the Federal Confidentiality of Alcohol and Drug Abuse Patient Records regulations: The Federal rules restrict any use of the information to criminally investigate or prosecute any alcohol or drug abuse patient.[facility] Reason for Visit (unrecogniz ed section and content) FOR RECORDS PERTAINING TO PATIENTS WHO ARE OR HAVE BEEN ENROLLED IN A CHEMICAL DEPENDENCY/SUBSTANCEABUSE PROGRAM, SOME INFORMATION MAY BE OMITTED. This clinical summary was aggregated from multiple sources. Caution should be exercised in using it in the provision of clinical care. This summary normalizes information from multiple sources, and as a consequence, information in this document may materially change the coding, format and clinical context of patient data. In addition, data may be omitted in some cases. CLINICAL DECISIONS SHOULD BE BASED ON THE PRIMARY CLINICAL RECORDS. [employer] [facility]. provides no warranty or guarantee of the accuracy or completeness of information in this document.
== END | disposition home or self-care (01) ==
PROVIDERS: PCP Family Medicine Geriatric Medicine; Visit Provider Family Medicine Geriatric Medicine
DX: I10 Essential (primary) hypertension (principal)
CPT/HCPCS: 36415; 80053; 80061; 84443; 85025

== ENCOUNTER → 2023-10-28 | Outpatient (CLI) | payer MEDICAID, SELFPAY ==
--- NOTE | 2023-10-28 09:20 | BI_ITS ---
MAMMOGRAPHY - BILATERAL SCREENING REASON FOR EXAM: Female, 52 years old. Routine annual screening examination. PERTINENT HISTORY: Non-contributory. Prior left ultrasound-guided breast biopsy. TECHNIQUE: Digital bilateral breast bc (3D mammographic acquisition) in the CC and MLO projections. 2-D mediolateral oblique (MLO) and craniocaudad (CC) views of both breasts were obtained. CAD: Full Field Digital Mammography with Computer Added Detection was performed. COMPARISON: Comparison is made with prior study October 04, 2022 and September 27, 2021. FINDINGS: Breast Composition: There are scattered areas of fibroglandular density. There are no dominant masses or suspicious calcifications. A tissue clip marker is once again seen in the retroareolar region of the left breast. Stable benign-appearing bilateral axillary lymph nodes. No other significant abnormalities are identified. There has been no significant change since the prior study. BI/SCRN MAMM (CAD)W/BC BILAT IMPRESSION: Stable bilateral screening mammogram. Yearly follow-up mammogram recommended. (A) ASSESSMENT CATEGORY: BIRADS Category 2: Benign. A letter regarding these results will be sent to the patient by the facility within 30 days. Approximately 10% of breast cancers are not detected by mammography. A normal mammogram should not delay biopsy of a clinically suspicious abnormality. [id number] Electronically Signed: Grabiel Spence MD at 12:21 EDT ,
--- NOTE | 2023-10-28 09:20 | US_ITS ---
STUDY: ABDOMINAL ULTRASOUND - RIGHT UPPER QUADRANT; ELASTOGRAPHY REASON FOR VISIT: Female, 52 years old. Fatty infiltration of the liver. TECHNIQUE: Ultrasound evaluation of the right upper quadrant was performed with real-time and static mclean-scale imaging. Point quantification shear wave elastography was performed ([employer]). TECHNICAL QUALITY: Adequate. COMPARISON: Comparison is made with prior study of October 04, 2022. FINDINGS: Liver: The liver is enlarged and measures 17 cm. There is increased echogenicity consistent with fatty infiltration. The bile ducts are within normal limits. There is hepatic color flow. The direction of portal flow is hepatopetal. There is no demonstrated mass lesion. Median liver stiffness measured 4.3 kPa. Gallbladder: Normal distended gallbladder. The gallbladder wall measures 1.9 mm. There is a negative sonographic Patel''s sign. There is no pericholecystic fluid. There are no gallstones. Common Bile Duct (C.B.D.): The common bile duct measures 6.4 mm. Pancreas: There is normal echogenicity of the visualized pancreas. There is no demonstrated pancreatic mass or cyst. Right Kidney: Normal size of the right kidney. The right kidney measures 11.6 cm x 5.8 cm x 4.8 cm. Normal renal cortex. The right cortex measures 1.6 cm. There is no demonstrated renal mass or cyst. There is no right hydronephrosis. US/ABD Limited w/ Elastography IMPRESSION: 1. Liver stiffness measures 4.3 kPa compatible with FO (Normal) Metavir score. Electronically Signed: Grabiel Spence MD at 15:23 EDT ,
== END | disposition home or self-care (01) ==
LOC: US 09:18
PROVIDERS: PCP Family Medicine Geriatric Medicine; Referring Provider Family Medicine Geriatric Medicine; Visit Provider Family Medicine Geriatric Medicine
DX: Z12.31 Encounter for screening mammogram for malignant neoplasm of breast (principal); K76.0 Fatty (change of) liver, not elsewhere classified
CPT/HCPCS: 76705; 76981; 77063; 77067